=== PATIENT | male | born 1955 | race Caucasian/White ===

== ENCOUNTER 2017-01-15 13:12 | Emergency (ER) | payer MEDICARE, MEDICAID ==
[~2017-01-15] VITALS: Ht 175.3 cm; Wt 82.6 kg
[~2017-01-15 13:12] MED LIST changes: -ATOR40TA78 PO; -GABA600T2 PO; -LABE200T3 PO; -OXYC5TAB3 PO
[2017-01-15 13:53] LABS: HEMOGLOBIN 16.2 g/dL (13.7-18.0)
[2017-01-15] MEDS ORDERED: SODIUM CHLORIDE 0.9% 1,000ML IVBOLUS ONE ×2 (14:00→16:00)
[2017-01-15] MEDS ORDERED: ONDANSETRON 2MG/ML, 2ML IVPush ONE ×2 (14:00→17:30)
[2017-01-15 14:06] LABS: ASPARTATE AMINO TRANSFERASE 9 U/L (15-37); BLOOD UREA NITROGEN 25 mg/dL (7-18)
[2017-01-15] MEDS ORDERED: LABE200T3 PO (15:58)
[2017-01-15] MEDS ORDERED: NITR0.4T SL (15:58)
[2017-01-15] MEDS ORDERED: GABA600T2 PO (15:58)
[2017-01-15] MEDS ORDERED: TAMS0.4C2 PO (15:58)
[2017-01-15] MEDS ORDERED: OXYC5TAB3 PO (15:58)
[2017-01-15] MEDS ORDERED: AMLO10TA2 PO (15:58)
[2017-01-15] MEDS ORDERED: CLOP75TA PO (15:58)
[2017-01-15] MEDS ORDERED: ATOR40TA78 PO (15:58)
[2017-01-15] MEDS ORDERED: FAMOTIDINE 20 MG/2 ML IVP ONE (16:00)
[2017-01-15] MEDS ORDERED: MAALOX/HYOSCYAMINE/LIDOCAINE 45 ML BOTTLE PO ONE (16:00)
[2017-01-15] MEDS ORDERED: FAMOTIDINE 20 MG/2 ML ONE (16:16)
[2017-01-15] MEDS ORDERED: MAALOX/HYOSCYAMINE/LIDOCAINE 45 ML BOTTLE ONE (16:16)
[2017-01-15] MEDS ORDERED: ONDANSETRON 2MG/ML, 2ML ONE ×2 (16:16→18:27)
[2017-01-15] MEDS ORDERED: HYDROmorphone 1 MG/ML, 1ML ONE ×2 (16:16→16:50)
[2017-01-15] MEDS: HYDROmorphone 1 MG/ML, 1ML IVPush PRN ×2 (16:31→16:53)
[2017-01-15] MEDS ORDERED: MORPHINE SULFATE 4 MG/ML, 1ML IVPush PRN (17:30)
[2017-01-15 18:19] LABS: PATH.CAST-FLAG NOT PRESENT; SPERM-FLAG NOT PRESENT; SRC-FLAG NOT PRESENT; XTAL-FLAG NOT PRESENT; YLC-FLAG NOT PRESENT
[2017-01-15] MEDS ORDERED: MORPHINE SULFATE 4 MG/ML, 1ML ONE (18:27)
[2017-01-15 19:18] VITALS: BP 161/99
== END 2017-01-15 19:26 | disposition home or self-care (01) ==
LOC: ED 16:48
DX: R10.12 Left upper quadrant pain (principal); I10 Essential (primary) hypertension; I25.10 Atherosclerotic heart disease of native coronary artery without angina pectoris; G62.9 Polyneuropathy, unspecified; Z95.1 Presence of aortocoronary bypass graft; Z86.718 Personal history of other venous thrombosis and embolism; Z98.890 Other specified postprocedural states
CPT/HCPCS: 36415; 74176; 80053; 81001; 83690; 85025; 96361; 96374; 96375; 96376; 99285; J1170; J2405; J7030; S0028

== ENCOUNTER → 2017-01-15 | Outpatient (CLI) | payer MEDICARE, MEDICAID ==
[~2017-01-15] MED LIST: ACET325T14 PO; ACYC15OI6 TP; AMLO10TA2 PO; ASPI-614; ATOR40TA78 PO; ATOR80TA75 PO; BENA40TA2; CEPH-368 PO; CEPH-376 PO; CLON0.1T PO; CLOP75TA PO; CLOT10TR PO; DOXY100T PO; ENOX100S5 SQ; ENOX120S5 SQ; FENT1PAT76 TD; FENT1PAT76 TP; FENT1PAT77 TD; FENT1PAT78 TD; FINA5TAB4 PO; GABA-827 PO; GABA100C PO; GABA600T2 PO; HYDR-3342; HYDR-3343 PO; ISOS20TA58 PO; ISOS60TA PO; LABE100T3 PO; LABE200T3 PO; LEVO500T8 PO; LISI-167 PO; LISI5TAB PO; LORA2ORA PO; LORA2VIA4 PEG; METO-95; METO-99; METO-99 PO; MORPHINE ER; NITR0.4T SL; ONDA4TAB10 PO; ONDA4TAB7 PO; OXYC20OR8 GT; OXYC5TAB3 PO; TAMS0.4C2 PO; [UNRECOGNIZED DRUG - OTHER]
== END | disposition home or self-care (01) ==
LOC: RAD 10:22
PROVIDERS: ATTEND Family Medicine
DX: R10.9 Unspecified abdominal pain (principal); K76.0 Fatty (change of) liver, not elsewhere classified
CPT/HCPCS: 76700

== ENCOUNTER → 2017-04-26 | Outpatient (CLI) | payer MEDICARE, MEDICAID ==
[~2017-04-26] MED LIST changes: +ATOR40TA78 PO; +GABA600T2 PO; +LABE200T3 PO; +OXYC5TAB3 PO
== END | disposition home or self-care (01) ==
LOC: ROC 07:33
PROVIDERS: ATTEND Radiology Radiation Oncology
DX: C10.8 Malignant neoplasm of overlapping sites of oropharynx (principal)
CPT/HCPCS: G0463

== ENCOUNTER 2017-05-14 20:24 | Inpatient (IN) | payer MEDICARE, MEDICAID ==
[~2017-05-14] VITALS: Ht 175.3 cm; Wt 74.7 kg
[2017-05-14] MEDS ORDERED: SODIUM CHLORIDE 0.9% 1,000 ML IV ONE (20:26)
[2017-05-14] MEDS ORDERED: SODIUM CHLORIDE FLUSH 10ML SYR IVF ONE (20:30)
[2017-05-14] MEDS ORDERED: NITROGLYCERIN SINGLE TAB 0.4 MG SL PRN (20:30)
[2017-05-14] MEDS ORDERED: TICAGRELOR 90 MG TABLET ONE (20:39)
[2017-05-14] MEDS ORDERED: MIDAZOLAM 1 MG/ML, 5ML ONE (20:39)
[2017-05-14] MEDS ORDERED: FENTANYL PF 100 MCG/2ML ONE ×2 (20:39→21:23)
[2017-05-14] MEDS ORDERED: LIDOCAINE 2%, 20ML ONE (20:40)
[2017-05-14] MEDS ORDERED: BIVALIRUDIN 250 MG ONE (20:40)
[2017-05-14] MEDS ORDERED: ENALAPRILAT 1.25 MG/ML, 2ML ONE ×2 (20:43→21:54)
[2017-05-14 20:53] LABS: BLOOD UREA NITROGEN 31 mg/dL (7-18)
[2017-05-14] MEDS ORDERED: SODIUM CHLORIDE FLUSH 10ML SYR IVF PRN (21:00)
[2017-05-14] MEDS ORDERED: DIPHENHYDRAMINE 50 MG/ML, 1ML ONE (21:23)
[2017-05-14] MEDS ORDERED: LABETALOL 5MG/ML, 20ML ONE (21:31)
[2017-05-14] MEDS ORDERED: NITROGLYCERIN/D5W PMX 250 ML ONE (22:27)
[2017-05-14] MEDS ORDERED: NITROGLYCERIN/D5W PMX 250 ML IV PRN (22:30)
[2017-05-14] MEDS ORDERED: PREG75CA PO (22:42)
[2017-05-14 22:47] VITALS: BP 168/125
[2017-05-14] MEDS ORDERED: BIVALIRUDIN 250 MG in DEXTROSE 5% 50 ML IV SCH (23:00)
[2017-05-14] MEDS ORDERED: SODIUM CHLORIDE 0.9% 1,000 ML IV SCH ×2 (23:00→23:11)
[2017-05-14] MEDS ORDERED: BISACODYL 10 MG SUPP PR PRN (23:00)
[2017-05-14] MEDS ORDERED: ZOLPIDEM 5MG TABLET PO PRN (23:00)
[2017-05-14] MEDS ORDERED: ACETAMINOPHEN 325 MG TABLET PO PRN ×2 (23:00→23:30)
[2017-05-14] MEDS ORDERED: BISACODYL 5 MG EC TABLET PO PRN (23:00)
[2017-05-14 23:16] LABS: IS PT STATUS REG ER OR PRE ER? NO
[2017-05-14] MEDS ORDERED: ONDANSETRON 2MG/ML, 2ML IVPush PRN (23:30)
[2017-05-14] MEDS ORDERED: DOCUSATE 100 MG CAPSULE PO PRN (23:30)
[2017-05-14] MEDS ORDERED: ENALAPRILAT 1.25 MG/ML, 2ML IV PRN (23:30)
[2017-05-14] MEDS ORDERED: POLYETHYLENE GLYCOL 17 GM PACKET PO PRN (23:30)
[2017-05-14] MEDS ORDERED: LABETALOL 5MG/ML, 20ML IVPush PRN (23:30)
[2017-05-14] MEDS: HEPARIN 5,000 UNITS/ML, 1ML SQ SCH (23:36)
[2017-05-14] MEDS: OXYcodone IR 5MG TABLET PO PRN (23:36)
[2017-05-14] MEDS: GABAPENTIN 300 MG CAPSULE PO SCH (23:37)
[2017-05-15] MEDS: morphine SULFATE 10 MG/ML, 1ML IVPush PRN ×3 (00:51→08:55)
[2017-05-15] MEDS: ATORVASTATIN 40 MG TABLET PO SCH ×2 (00:51→20:50)
[2017-05-15 04:00] VITALS: BP 162/87
[2017-05-15 05:01] LABS: IS PT STATUS REG ER OR PRE ER? NO
[2017-05-15 05:49] LABS: BLOOD UREA NITROGEN 26 mg/dL (7-18)
[2017-05-15] MEDS: ASPIRIN 81 MG TABLET EC PO SCH (05:55)
[2017-05-15] MEDS: OXYcodone IR 5MG TABLET PO PRN ×2 (05:55→16:30)
[2017-05-15] MEDS: HEPARIN 5,000 UNITS/ML, 1ML SQ SCH ×3 (07:40→23:03)
[2017-05-15] MEDS: TAMSULOSIN 0.4 MG CAP.ER.24H PO SCH (07:58)
[2017-05-15] MEDS: TICAGRELOR 90 MG TABLET PO SCH ×2 (07:58→20:50)
[2017-05-15] MEDS: AMLODIPINE 5 MG TABLET PO SCH (07:59)
[2017-05-15] MEDS: SENNA/DOCUSATE TABLET PO SCH (07:59)
[2017-05-15] MEDS: LABETALOL 200 MG TABLET PO SCH ×2 (07:59→20:51)
[2017-05-15] MEDS: GABAPENTIN 300 MG CAPSULE PO SCH ×2 (08:00→16:00)
[2017-05-15] MEDS ORDERED: FUROSEMIDE 20 MG/2 ML IV ONE (10:30)
[2017-05-15] MEDS: ONDANSETRON 2MG/ML, 2ML IV PRN (17:06)
[2017-05-15] MEDS ORDERED: SODIUM CHLORIDE 0.9%, 500ML IVBOLUS ONE (17:30)
[2017-05-15] MEDS: PREGABALIN 75 MG CAPSULE PO SCH (21:08)
[2017-05-16 02:45] VITALS: BP 138/67
[2017-05-16 04:41] LABS: BLOOD UREA NITROGEN 23 mg/dL (7-18)
[2017-05-16] MEDS: ASPIRIN 81 MG TABLET EC PO SCH (05:25)
[2017-05-16] MEDS: ONDANSETRON 2MG/ML, 2ML IV PRN (06:21)
[2017-05-16] MEDS: HEPARIN 5,000 UNITS/ML, 1ML SQ SCH ×3 (07:00→21:53)
[2017-05-16] MEDS: SENNA/DOCUSATE TABLET PO SCH (09:00)
[2017-05-16] MEDS: PREGABALIN 75 MG CAPSULE PO SCH ×2 (09:00→20:36)
[2017-05-16] MEDS: LABETALOL 200 MG TABLET PO SCH ×2 (09:00→20:36)
[2017-05-16] MEDS: TAMSULOSIN 0.4 MG CAP.ER.24H PO SCH (09:00)
[2017-05-16] MEDS: AMLODIPINE 5 MG TABLET PO SCH (09:00)
[2017-05-16] MEDS: TICAGRELOR 90 MG TABLET PO SCH ×2 (09:17→20:36)
[2017-05-16] MEDS: ACETYLCYSTEINE 600 MG CAPSULE PO SCH ×2 (10:06→20:36)
[2017-05-16] MEDS ORDERED: SODIUM CHLORIDE 0.9% 1,000 ML IV SCH (11:24)
[2017-05-16] MEDS ORDERED: MIDAZOLAM 1 MG/ML, 5ML ONE (14:48)
[2017-05-16] MEDS ORDERED: LIDOCAINE 2%, 20ML ONE (14:49)
[2017-05-16] MEDS ORDERED: FENTANYL PF 100 MCG/2ML ONE (14:49)
[2017-05-16] MEDS ORDERED: DIPHENHYDRAMINE 50 MG/ML, 1ML ONE (14:49)
[2017-05-16] MEDS ORDERED: VERAPAMIL 2.5 MG/ML, 2ML ONE (14:49)
[2017-05-16] MEDS ORDERED: BIVALIRUDIN 250 MG ONE (14:49)
[2017-05-16] MEDS: ATORVASTATIN 40 MG TABLET PO SCH (20:36)
[2017-05-16] MEDS: SODIUM CHLORIDE 0.9% 1,000 ML IV SCH (20:37)
[2017-05-17 03:30] VITALS: BP 122/74
[2017-05-17] MEDS: SODIUM CHLORIDE 0.9% 1,000 ML IV SCH (04:15)
[2017-05-17 04:52] LABS: BLOOD UREA NITROGEN 26 mg/dL (7-18)
[2017-05-17] MEDS: ASPIRIN 81 MG TABLET EC PO SCH (05:30)
[2017-05-17] MEDS: HEPARIN 5,000 UNITS/ML, 1ML SQ SCH ×3 (06:40→23:26)
[2017-05-17] MEDS: AMLODIPINE 5 MG TABLET PO SCH (08:37)
[2017-05-17] MEDS: ACETYLCYSTEINE 600 MG CAPSULE PO SCH ×2 (08:37→20:27)
[2017-05-17] MEDS: TICAGRELOR 90 MG TABLET PO SCH ×2 (08:37→20:27)
[2017-05-17] MEDS: PREGABALIN 75 MG CAPSULE PO SCH ×2 (08:37→20:27)
[2017-05-17] MEDS: SENNA/DOCUSATE TABLET PO SCH (08:37)
[2017-05-17] MEDS: LABETALOL 200 MG TABLET PO SCH ×2 (08:37→20:27)
[2017-05-17 12:35] VITALS: BP 98/66
[2017-05-17 20:04] VITALS: BP 123/82
[2017-05-17] MEDS: ATORVASTATIN 40 MG TABLET PO SCH (20:27)
[2017-05-17] MEDS: TAMSULOSIN 0.4 MG CAP.ER.24H PO SCH (20:27)
[2017-05-18 03:00] VITALS: BP 120/79
[2017-05-18 05:18] LABS: BLOOD UREA NITROGEN 30 mg/dL (7-18)
[2017-05-18] MEDS: ASPIRIN 81 MG TABLET EC PO SCH (06:10)
[2017-05-18 07:25] VITALS: BP 119/79
[2017-05-18] MEDS: AMLODIPINE 5 MG TABLET PO SCH (08:40)
[2017-05-18] MEDS: PREGABALIN 75 MG CAPSULE PO SCH (08:40)
[2017-05-18] MEDS: TAMSULOSIN 0.4 MG CAP.ER.24H PO SCH (08:40)
[2017-05-18] MEDS: TICAGRELOR 90 MG TABLET PO SCH (08:40)
[2017-05-18] MEDS: LABETALOL 200 MG TABLET PO SCH (08:41)
[2017-05-18] MEDS: SENNA/DOCUSATE TABLET PO SCH (08:42)
[2017-05-18] MEDS: HEPARIN 5,000 UNITS/ML, 1ML SQ SCH (08:42)
[2017-05-18] MEDS ORDERED: DOCU-30 PO (08:59)
[2017-05-18] MEDS ORDERED: ASPI-621 PO (08:59)
[2017-05-18] MEDS ORDERED: TICA90TA PO (08:59)
== END 2017-05-18 11:10 | disposition home or self-care (01) | DRG 246 ==
LOC: ED 20:48 → EDIP 21:20 → CCU 22:22 → 5SO 05-17 12:10 → DCLOUNGE 05-18 10:51
PROVIDERS: ADMIT Internal Medicine Interventional Cardiology; ATTEND Family Medicine
PROC: 4A023N7 Measurement of Cardiac Sampling and Pressure, Left Heart, Percutaneous Approach (ICD-10-PCS; 2017-05-14)
PROC: B2111ZZ Fluoroscopy of Multiple Coronary Arteries using Low Osmolar Contrast (ICD-10-PCS; 2017-05-14)
PROC: 027135Z Dilation of Coronary Artery, Two Arteries with Two Drug-eluting Intraluminal Devices, Percutaneous Approach (ICD-10-PCS; principal; 2017-05-16)
DX: I21.09 ST elevation (STEMI) myocardial infarction involving other coronary artery of anterior wall (principal); N17.0 Acute kidney failure with tubular necrosis; I25.10 Atherosclerotic heart disease of native coronary artery without angina pectoris; I13.10 Hypertensive heart and chronic kidney disease without heart failure, with stage 1 through stage 4 chronic kidney disease, or unspecified chronic kidney disease; E78.5 Hyperlipidemia, unspecified; I34.0 Nonrheumatic mitral (valve) insufficiency; N40.0 Benign prostatic hyperplasia without lower urinary tract symptoms; N18.3 Chronic kidney disease, stage 3 (moderate); I95.9 Hypotension, unspecified; R13.10 Dysphagia, unspecified; L59.8 Other specified disorders of the skin and subcutaneous tissue related to radiation; Z88.8 Allergy status to other drugs, medicaments and biological substances; Z88.1 Allergy status to other antibiotic agents; Z91.030 Bee allergy status; Z85.810 Personal history of malignant neoplasm of tongue; Z86.718 Personal history of other venous thrombosis and embolism; Z87.11 Personal history of peptic ulcer disease; Z87.891 Personal history of nicotine dependence; I25.2 Old myocardial infarction; Z92.21 Personal history of antineoplastic chemotherapy; Z92.3 Personal history of irradiation; Z93.1 Gastrostomy status
CPT/HCPCS: 36415; 71010; 80047; 80048; 82040; 83880; 84484; 85014; 85018; 85025; 85610; 85730; 87081; 93005; 93306; 93454; 99156; 99157; 99285; C1760; C1894; C9600; J0583; J1644; J2250; J2405; J3010; J3490; C1725; C1769; C1874; C1887; J1200; J1940; J2270; J7030; J7040; Q9967

== ENCOUNTER → 2017-06-20 | Outpatient (CLI) | payer MEDICARE, MEDICAID ==
[~2017-06-20] MED LIST changes: +ASPI-621 PO; +ATOR-2 PO; -ATOR80TA75 PO; +DOCU-131 PO; +PREG75CA PO; +TICA90TA PO
== END | disposition home or self-care (01) ==
LOC: CFH 08:59
PROVIDERS: ATTEND Internal Medicine Cardiovascular Disease
DX: I08.1 Rheumatic disorders of both mitral and tricuspid valves (principal); I25.10 Atherosclerotic heart disease of native coronary artery without angina pectoris
CPT/HCPCS: 93306

== ENCOUNTER → 2017-10-05 | Outpatient (CLI) | payer MEDICARE, MEDICAID | END | disposition home or self-care (01) | LOC: ROC 07:22 | PROVIDERS: ATTEND Radiology Radiation Oncology | DX: C01 Malignant neoplasm of base of tongue (principal); Z88.0 Allergy status to penicillin | CPT/HCPCS: G0463 ==

== ENCOUNTER 2018-01-15 08:32 | Inpatient (IN) | payer MEDICARE, MEDICAID ==
[~2018-01-15] VITALS: Ht 175.3 cm; Wt 86.2 kg
[2018-01-15] MEDS ORDERED: LACTATED RINGERS 1,000 ML IV SCH (08:58)
[2018-01-15] MEDS ORDERED: LISI-167 PO (09:07)
[2018-01-15] MEDS ORDERED: AMLO5TAB2 PO (09:07)
[2018-01-15] MEDS ORDERED: OXYC10TA6 PO (09:07)
[2018-01-15] MEDS ORDERED: CLOP75TA PO (09:07)
[2018-01-15] MEDS ORDERED: PREG75CA PO (09:07)
[2018-01-15] MEDS ORDERED: FINA5TAB4 PO (09:07)
[2018-01-15 09:32] VITALS: BP 131/86
[2018-01-15 09:43] LABS: ALANINE AMINOTRANSFERASE 16 U/L (12-78); ALBUMIN 3.7 g/dL (3.4-5.0); ANION GAP 9 mmol/L (5-15); CALCIUM 9.1 mg/dL (8.5-10.1); CHLORIDE 107 mmol/L (98-107); CREATININE 1.79 mg/dL (0.7-1.3)
[2018-01-15 09:46] LABS: ALKALINE PHOSPHATASE 90 U/L (45-117); BILIRUBIN,TOTAL 0.6 mg/dL (0.2-1.0); TOTAL PROTEIN 7.3 g/dL (6.4-8.2)
[2018-01-15 11:58] LABS: BASOPHILS # (AUTO) 0.05 x10^3/uL (0-0.1); BASOPHILS % (AUTO) 1 % (0-1); EOSINOPHILS # (AUTO) 0.24 x10^3/uL (0-0.4); EOSINOPHILS % (AUTO) 3 % (1-7); LYMPHOCYTES # (AUTO) 1.42 x10^3/uL (1-3.4); LYMPHOCYTES % (AUTO) 20 % (22-44); MD NO; MEAN CORPUSCULAR HEMOGLOBIN 29.4 pg (27.5-34.5); MEAN CORPUSCULAR HGB CONC 33.5 g/dL (33.2-36.2); MEAN CORPUSCULAR VOLUME 87.8 fL (81-97); MEAN PLATELET VOLUME 8.1 fL (7.4-10.4); MONOCYTES # (AUTO) 0.74 x10^3/uL (0.2-0.8); MONOCYTES % (AUTO) 10 % (2-9); NEUTROPHILS # (AUTO) 4.69 x10^3/uL (1.8-6.8); NEUTROPHILS % (AUTO) 66 % (42-75); PLATELET COUNT 276 x10^3/uL (130-400); RED BLOOD COUNT 4.99 x10^6/uL (4.38-5.82); RED CELL DISTRIBUTION WIDTH 14.4 % (9.4-14.8)
[2018-01-15 12:11] LABS: ALANINE AMINOTRANSFERASE 19 U/L (12-78); ALBUMIN 3.4 g/dL (3.4-5.0); ANION GAP 9 mmol/L (5-15); CALCIUM 8.8 mg/dL (8.5-10.1); CHLORIDE 107 mmol/L (98-107); CREATININE 1.63 mg/dL (0.7-1.3)
[2018-01-15 12:14] LABS: INTERNATIONAL NORMALIZED RATIO 0.98 (0.93-1.1); PROTHROMBIN TIME 10.2 Seconds (9.6-11.5)
[2018-01-15 12:15] LABS: ALKALINE PHOSPHATASE 83 U/L (45-117); BILIRUBIN,TOTAL 0.6 mg/dL (0.2-1.0); CREATINE KINASE, TOTAL 124 U/L (39-308); TOTAL PROTEIN 6.9 g/dL (6.4-8.2); TROPONIN I < 0.015 ng/mL (0.000-0.045)
[2018-01-15] MEDS ORDERED: ALTEPLASE IV ONE ×3 (13:00→13:30)
[2018-01-15] MEDS ORDERED: ALTEPLASE 8 MG in SYRINGE 1 EA IV ONE ×2 (13:30→13:42)
[2018-01-15] MEDS ORDERED: ONDANSETRON 2MG/ML, 2ML IVPush PRN (14:30)
[2018-01-15] MEDS ORDERED: ACETAMINOPHEN 650 MG/20.3 ML UDC PO PRN (14:30)
[2018-01-15] MEDS ORDERED: POLYETHYLENE GLYCOL 17 GM PACKET PO PRN (14:30)
[2018-01-15 14:36] VITALS: BP 134/74
[2018-01-15] MEDS ORDERED: PROPOFOL 10 MG/ML, 20ML ONE (15:50)
[2018-01-15] MEDS ORDERED: GABAPENTIN 300 MG CAPSULE PO SCH (16:00)
[2018-01-15] MEDS: OXYcodone IR 5MG TABLET PO PRN ×2 (16:21→18:02)
[2018-01-15] MEDS: PREGABALIN 75 MG CAPSULE PO SCH (19:52)
[2018-01-15] MEDS: ATORVASTATIN 40 MG TABLET PO SCH (19:52)
[2018-01-15] MEDS ORDERED: DOCUSATE 100 MG CAPSULE PO PRN (21:00)
[2018-01-16 04:26] LABS: BASOPHILS # (AUTO) 0.03 x10^3/uL (0-0.1); BASOPHILS % (AUTO) 1 % (0-1); EOSINOPHILS # (AUTO) 0.27 x10^3/uL (0-0.4); EOSINOPHILS % (AUTO) 4 % (1-7); LYMPHOCYTES # (AUTO) 1.31 x10^3/uL (1-3.4); LYMPHOCYTES % (AUTO) 18 % (22-44); MD NO; MEAN CORPUSCULAR HEMOGLOBIN 29.3 pg (27.5-34.5); MEAN CORPUSCULAR VOLUME 88.6 fL (81-97); MONOCYTES # (AUTO) 0.71 x10^3/uL (0.2-0.8); MONOCYTES % (AUTO) 10 % (2-9); NEUTROPHILS # (AUTO) 4.86 x10^3/uL (1.8-6.8); NEUTROPHILS % (AUTO) 68 % (42-75); PLATELET COUNT 273 x10^3/uL (130-400); RED BLOOD COUNT 5.34 x10^6/uL (4.38-5.82); RED CELL DISTRIBUTION WIDTH 14.1 % (9.4-14.8)
[2018-01-16 04:33] LABS: INTERNATIONAL NORMALIZED RATIO 1.05 (0.93-1.1); PROTHROMBIN TIME 10.9 Seconds (9.6-11.5)
[2018-01-16 04:38] LABS: ANION GAP 6 mmol/L (5-15); CALCIUM 9.4 mg/dL (8.5-10.1); CHLORIDE 109 mmol/L (98-107)
[2018-01-16 04:39] LABS: CREATININE 1.63 mg/dL (0.7-1.3)
[2018-01-16 05:07] VITALS: BP 106/72
[2018-01-16] MEDS: AMLODIPINE 5 MG TABLET PO SCH (09:31)
[2018-01-16] MEDS: TAMSULOSIN 0.4 MG CAP.ER.24H PO SCH (09:31)
[2018-01-16] MEDS: LISINOPRIL 10 MG TABLET PO SCH (09:31)
[2018-01-16] MEDS: FINASTERIDE 5 MG TABLET PO SCH (09:31)
[2018-01-16] MEDS: PREGABALIN 75 MG CAPSULE PO SCH ×2 (09:38→20:45)
[2018-01-16] MEDS: OXYcodone IR 5MG TABLET PO PRN ×2 (09:38→20:45)
[2018-01-16 15:55] VITALS: BP 96/64
[2018-01-16 20:00] VITALS: BP 117/76
[2018-01-16] MEDS: ATORVASTATIN 40 MG TABLET PO SCH (20:45)
[2018-01-17 02:00] VITALS: BP 126/82
[2018-01-17 05:36] LABS: BASOPHILS # (AUTO) 0.05 x10^3/uL (0-0.1); BASOPHILS % (AUTO) 1 % (0-1); EOSINOPHILS # (AUTO) 0.24 x10^3/uL (0-0.4); EOSINOPHILS % (AUTO) 3 % (1-7); LYMPHOCYTES # (AUTO) 1.42 x10^3/uL (1-3.4); LYMPHOCYTES % (AUTO) 16 % (22-44); MD NO; MEAN CORPUSCULAR HEMOGLOBIN 29.9 pg (27.5-34.5); MEAN CORPUSCULAR HGB CONC 34.2 g/dL (33.2-36.2); MEAN CORPUSCULAR VOLUME 87.3 fL (81-97); MEAN PLATELET VOLUME 8.3 fL (7.4-10.4); MONOCYTES # (AUTO) 0.86 x10^3/uL (0.2-0.8); MONOCYTES % (AUTO) 10 % (2-9); NEUTROPHILS # (AUTO) 6.36 x10^3/uL (1.8-6.8); NEUTROPHILS % (AUTO) 71 % (42-75); PLATELET COUNT 274 x10^3/uL (130-400); RED BLOOD COUNT 5.24 x10^6/uL (4.38-5.82); RED CELL DISTRIBUTION WIDTH 13.6 % (9.4-14.8)
[2018-01-17 05:54] LABS: ALBUMIN 3.7 g/dL (3.4-5.0); ANION GAP 10 mmol/L (5-15); CALCIUM 9.2 mg/dL (8.5-10.1); CHLORIDE 105 mmol/L (98-107)
[2018-01-17 05:58] LABS: ALANINE AMINOTRANSFERASE 18 U/L (12-78); ALKALINE PHOSPHATASE 96 U/L (45-117); BILIRUBIN,TOTAL 0.9 mg/dL (0.2-1.0); CREATININE 1.96 mg/dL (0.7-1.3); TOTAL PROTEIN 7.3 g/dL (6.4-8.2)
[2018-01-17 08:02] VITALS: BP 115/78
[2018-01-17] MEDS ORDERED: CLOPIDOGREL 75 MG TABLET PO SCH (09:00)
[2018-01-17] MEDS: AMLODIPINE 5 MG TABLET PO SCH (09:29)
[2018-01-17 09:30] VITALS: BP 107/69
[2018-01-17] MEDS: FINASTERIDE 5 MG TABLET PO SCH (09:30)
[2018-01-17] MEDS: LISINOPRIL 10 MG TABLET PO SCH (09:30)
[2018-01-17] MEDS: TAMSULOSIN 0.4 MG CAP.ER.24H PO SCH (09:30)
[2018-01-17] MEDS: PREGABALIN 75 MG CAPSULE PO SCH (09:30)
[2018-01-17 14:16] VITALS: BP 109/73
== END 2018-01-17 15:47 | disposition home or self-care (01) | DRG 391 ==
LOC: OUT 08:32 → CCU 12:52 → OUT 13:07 → CCU 01-16 11:14 → 4WST 01-16 15:41 → DCLOUNGE 01-17 15:38
PROVIDERS: ADMIT Internal Medicine; ATTEND Internal Medicine Geriatric Medicine
PROC: 3E03317 Introduction of Other Thrombolytic into Peripheral Vein, Percutaneous Approach (ICD-10-PCS; 2018-01-15)
PROC: 0D758ZZ Dilation of Esophagus, Via Natural or Artificial Opening Endoscopic (ICD-10-PCS; principal; 2018-01-15 11:15)
DX: K22.2 Esophageal obstruction (principal); I63.9 Cerebral infarction, unspecified; R47.01 Aphasia; I25.82 Chronic total occlusion of coronary artery; C76.0 Malignant neoplasm of head, face and neck; N19 Unspecified kidney failure; E78.5 Hyperlipidemia, unspecified; F43.10 Post-traumatic stress disorder, unspecified; I10 Essential (primary) hypertension; I25.10 Atherosclerotic heart disease of native coronary artery without angina pectoris; Z92.21 Personal history of antineoplastic chemotherapy; Z92.3 Personal history of irradiation; Z95.1 Presence of aortocoronary bypass graft; Z95.5 Presence of coronary angioplasty implant and graft; Z79.02 Long term (current) use of antithrombotics/antiplatelets; N40.0 Benign prostatic hyperplasia without lower urinary tract symptoms; I65.23 Occlusion and stenosis of bilateral carotid arteries
CPT/HCPCS: 36415; 70450; 80047; 80048; 80053; 80061; 82550; 82553; 82962; 83735; 84100; 84484; 85025; 85610; 85730; 87081; 88305; 93005; 93306; 93880; J2704; J2997; 92523-GN

== ENCOUNTER → 2018-08-16 | Outpatient (CLI) | payer MEDICARE, MEDICAID ==
[~2018-08-16] MED LIST changes: -AMLO10TA2 PO; +AMLO10TA6 PO; +AMLO5TAB7 PO; -BENA40TA2; +BENA40TA3; -LABE100T3 PO; +LABE100T6 PO; -LABE200T3 PO; +LABE200T6 PO; -LORA2VIA4 PEG; +LORA2VIA6 PEG; +OXYC10TA6 PO; +REGADENOSON 0.4 MG/5 ML SYRINGE ONE
== END | disposition home or self-care (01) ==
LOC: CVU 08:23
PROVIDERS: ATTEND Internal Medicine Cardiovascular Disease
DX: I65.23 Occlusion and stenosis of bilateral carotid arteries (principal); I10 Essential (primary) hypertension; E78.5 Hyperlipidemia, unspecified; I25.2 Old myocardial infarction
CPT/HCPCS: 78452; 93017; 93880; A9502; J2785

== ENCOUNTER 2019-02-23 00:02 | Inpatient (IN) | payer MEDICARE, MEDICAID ==
[2019-02-23] VITALS (11 sets, daily range): BP systolic 72–115; BP diastolic 35–68
[~2019-02-23] VITALS: Ht 175.3 cm; Wt 82.4 kg
[~2019-02-23 00:02] MED LIST changes: +AMLO-150 PO; -AMLO10TA6 PO; +AMLO10TA8 PO; -AMLO5TAB7 PO; -ASPI-621 PO; +ASPI81TA45 PO; -CLON0.1T PO; +CLON0.1T22 PO; -GABA600T2 PO; +GABA600T7 PO; -REGADENOSON 0.4 MG/5 ML SYRINGE ONE
--- NOTE | 2019-02-23 00:42 | NUR ---
FIRST CONTACT WITH PT. PT STATES HE WOKE UP AROUND 11 PM WITH HIGH BLOOD PRESSURE. 169/114. SLIGHT CHEST PAIN THAT RADIATES TO BACK. BP TAKEN ON BOTH ARMS WITH NO DIFFERENCE. SPINAL STIMULATOR NOTED. PT C/O CP/BACK PAIN WELL. PT'S AOX4. RESPS EVEN AND UNLABORED. ALL MONITORS IN PLACE. CALL LIGHT WITHIN REACH. NSR ON TORCH CUTTER WITHOUT ECTOPY RATE 70'S AT THIS TIME. AWAITING EDMD ORDERES.
[2019-02-23] MEDS ORDERED: NITROGLYCERIN OINT 2%, 1GM TP ONE ×2 (01:19→01:30)
[2019-02-23] MEDS ORDERED: SODIUM CHLORIDE FLUSH 10ML SYR IVF ONE (01:30)
[2019-02-23 01:36] LABS: BASOPHILS # (AUTO) 0.04 x10^3/uL (0-0.1); BASOPHILS % (AUTO) 1 % (0-1); EOSINOPHILS # (AUTO) 0.29 x10^3/uL (0-0.4); EOSINOPHILS % (AUTO) 4 % (1-7); LYMPHOCYTES # (AUTO) 1.47 x10^3/uL (1-3.4); LYMPHOCYTES % (AUTO) 18 % (22-44); MD NO; MEAN CORPUSCULAR HEMOGLOBIN 29.7 pg (27.5-34.5); MEAN CORPUSCULAR HGB CONC 33.8 g/dL (33.2-36.2); MEAN CORPUSCULAR VOLUME 87.9 fL (81-97); MEAN PLATELET VOLUME 8.3 fL (7.4-10.4); MONOCYTES # (AUTO) 0.81 x10^3/uL (0.2-0.8); MONOCYTES % (AUTO) 10 % (2-9); NEUTROPHILS # (AUTO) 5.54 x10^3/uL (1.8-6.8); NEUTROPHILS % (AUTO) 68 % (42-75); PLATELET COUNT 196 x10^3/uL (130-400); RED BLOOD COUNT 5.68 x10^6/uL (4.38-5.82); RED CELL DISTRIBUTION WIDTH 14.1 % (9.4-14.8)
[2019-02-23 01:43] LABS: INTERNATIONAL NORMALIZED RATIO 0.96 (0.93-1.1); PROTHROMBIN TIME 10.1 Seconds (9.6-11.5)
[2019-02-23 01:45] LABS: ALANINE AMINOTRANSFERASE 19 U/L (12-78); ANION GAP 8 mmol/L (5-15); CALCIUM 9.5 mg/dL (8.5-10.1); CHLORIDE 111 mmol/L (98-107); CREATININE 1.75 mg/dL (0.7-1.3)
--- NOTE | 2019-02-23 01:46 | NUR ---
PT MEDICATED PER EMAR. PT TOLERATED WELL. PT'S AOX4. RESPS EVEN AND UNLABORED.
[2019-02-23 01:50] LABS: ALKALINE PHOSPHATASE 90 U/L (45-117); BILIRUBIN,TOTAL 0.3 mg/dL (0.2-1.0); TOTAL PROTEIN 7.5 g/dL (6.4-8.2); TROPONIN I < 0.015 ng/mL (0.000-0.045)
[2019-02-23] MEDS ORDERED: ATOR-2 PO (02:00)
[2019-02-23] MEDS ORDERED: PRAZ1CAP2 PO (02:03)
--- NOTE | 2019-02-23 02:47 | NUR ---
PT RESTING IN [facility]. ALL MONITORS IN PLACE. CALL LIGHT WITHIN REACH. EDMD AT BEDSIDE TO EXPLAIN ALL RESULTS AT THIS TIME.
[2019-02-23] MEDS ORDERED: ACETAMINOPHEN 500 MG TABLET PO ONE (03:00)
[2019-02-23] MEDS ORDERED: MORPHINE SULFATE 4 MG/ML, 1ML IVPush ONE (03:00)
[2019-02-23] MEDS ORDERED: MORPHINE SULFATE 4 MG/ML, 1ML ONE (03:01)
[2019-02-23] MEDS ORDERED: ACETAMINOPHEN 500 MG TABLET ONE (03:01)
--- NOTE | 2019-02-23 03:08 | NUR ---
PT MEDICATED PER EMAR FOR PAIN. PT TOLERATED WELL. HOSPITALIST AT BEDSIDE NOW.
--- NOTE | 2019-02-23 04:09 | NUR ---
PT'S PAIN LEVEL IS 3/10 AT THIS TIME.
--- NOTE | 2019-02-23 05:36 | NUR ---
PT RESTING IN [facility]. RESPS EVEN AND UNLABORED. ALL MONITORS IN PLACE. CALL LIGHT WITHIN REACH.
[2019-02-23] MEDS ORDERED: ASPIRIN 81 MG TABLET EC ONE (05:56)
[2019-02-23] MEDS: ASPIRIN 81 MG TABLET EC PO SCH (05:59)
--- NOTE | 2019-02-23 06:02 | NUR ---
PT MEDICATED PER EMAR. PT'S AOX4. RESPS EVEN AND UNLABORED. ALL MONITORS IN PLACE. CALL LIGHT WITHIN REACH.
--- NOTE | 2019-02-23 06:54 | NUR ---
REPORT GIVEN TO SYED OVALLE.
[2019-02-23] MEDS ORDERED: MAALOX/HYOSCYAMINE/LIDOCAINE 45 ML BTL PO ONE (07:00)
--- NOTE | 2019-02-23 07:00 | NUR ---
REPORT GIVEN TO LEONELA OVALLE. ALL QUESTIONS ANSWERED.
[2019-02-23] MEDS ORDERED: LABETALOL 200 MG TABLET PO SCH (09:00)
[2019-02-23] MEDS ORDERED: LISINOPRIL 10 MG TABLET PO SCH (09:00)
[2019-02-23] MEDS ORDERED: AMLODIPINE 10 MG TAB PO SCH (09:00)
[2019-02-23 09:48] LABS: TROPONIN I < 0.015 ng/mL (0.000-0.045)
[2019-02-23] MEDS: FINASTERIDE 5 MG TABLET PO SCH (09:48)
[2019-02-23] MEDS: CLOPIDOGREL 75 MG TABLET PO SCH (09:50)
[2019-02-23] MEDS: PREGABALIN 75 MG CAPSULE PO SCH ×2 (09:50→21:48)
[2019-02-23] MEDS: HEPARIN 5,000 UNITS/ML, 1ML SQ SCH ×2 (09:51→17:45)
[2019-02-23] MEDS: TAMSULOSIN 0.4 MG CAP.ER.24H PO SCH (09:51)
[2019-02-23] MEDS: PRAZOSIN 1 MG CAPSULE PO SCH ×2 (09:52→09:54)
[2019-02-23] MEDS ORDERED: SODIUM CHLORIDE 0.9% 1,000 ML IV SCH ×2 (11:00→11:30)
[2019-02-23] MEDS: SODIUM CHLORIDE 0.9% 1,000 ML IV SCH ×2 (11:15→21:49)
[2019-02-23] MEDS ORDERED: BROM5DRO3 RIGHTEYE (16:00)
[2019-02-23] MEDS ORDERED: SODIUM CHLORIDE 0.9%, 500ML IVBOLUS ONE ×2 (16:00→18:00)
[2019-02-23] MEDS ORDERED: DIFL5DRO RIGHTEYE (16:00)
[2019-02-23] MEDS: ATORVASTATIN 80 MG TABLET PO SCH (21:48)
[2019-02-24 01:53] VITALS: BP 126/68
[2019-02-24] MEDS: HEPARIN 5,000 UNITS/ML, 1ML SQ SCH ×3 (01:53→16:59)
[2019-02-24 05:05] LABS: BASOPHILS # (AUTO) 0.06 x10^3/uL (0-0.1); BASOPHILS % (AUTO) 1 % (0-1); EOSINOPHILS # (AUTO) 0.38 x10^3/uL (0-0.4); EOSINOPHILS % (AUTO) 5 % (1-7); LYMPHOCYTES # (AUTO) 1.54 x10^3/uL (1-3.4); LYMPHOCYTES % (AUTO) 22 % (22-44); MD NO; MEAN CORPUSCULAR HEMOGLOBIN 28.7 pg (27.5-34.5); MEAN CORPUSCULAR HGB CONC 33.1 g/dL (33.2-36.2); MEAN CORPUSCULAR VOLUME 86.7 fL (81-97); MEAN PLATELET VOLUME 8.6 fL (7.4-10.4); MONOCYTES % (AUTO) 10 % (2-9); NEUTROPHILS # (AUTO) 4.41 x10^3/uL (1.8-6.8); NEUTROPHILS % (AUTO) 62 % (42-75); PLATELET COUNT 196 x10^3/uL (130-400); RED BLOOD COUNT 4.98 x10^6/uL (4.38-5.82); RED CELL DISTRIBUTION WIDTH 14.1 % (9.4-14.8)
[2019-02-24 05:14] LABS: ANION GAP 5 mmol/L (5-15); CALCIUM 8.9 mg/dL (8.5-10.1); CHLORIDE 109 mmol/L (98-107)
[2019-02-24 05:16] LABS: CREATININE 1.53 mg/dL (0.7-1.3)
[2019-02-24] MEDS: ASPIRIN 81 MG TABLET EC PO SCH (06:10)
[2019-02-24 06:30] VITALS: BP 124/82
[2019-02-24] MEDS: PREGABALIN 75 MG CAPSULE PO SCH ×2 (10:13→20:29)
[2019-02-24] MEDS: FINASTERIDE 5 MG TABLET PO SCH (10:13)
[2019-02-24] MEDS: TAMSULOSIN 0.4 MG CAP.ER.24H PO SCH (10:13)
[2019-02-24] MEDS: CLOPIDOGREL 75 MG TABLET PO SCH (10:13)
[2019-02-24 13:26] VITALS: BP 111/71
[2019-02-24] MEDS ORDERED: MIDAZOLAM 1 MG/ML, 5ML ONE (14:00)
[2019-02-24] MEDS ORDERED: FENTANYL PF 100 MCG/2ML ONE (14:00)
[2019-02-24] MEDS ORDERED: TICAGRELOR 90 MG TABLET ONE (14:01)
[2019-02-24] MEDS ORDERED: HEPARIN 1,000 UNITS/ML, 10ML ONE (14:01)
[2019-02-24] MEDS ORDERED: VERAPAMIL 2.5 MG/ML, 2ML ONE (14:01)
[2019-02-24] MEDS ORDERED: BIVALIRUDIN 250 MG ONE (14:01)
[2019-02-24] MEDS: SODIUM CHLORIDE 0.9% 1,000 ML IV SCH ×3 (16:21→23:14)
[2019-02-24] MEDS ORDERED: morphine SULFATE 10 MG/ML, 1ML IVPush PRN (16:30)
[2019-02-24] MEDS: LABETALOL 100 MG TABLET PO SCH (18:09)
[2019-02-24 18:29] VITALS: BP 144/82
[2019-02-24] MEDS: ATORVASTATIN 80 MG TABLET PO SCH (20:29)
[2019-02-25 01:35] VITALS: BP 140/88
[2019-02-25] MEDS: ASPIRIN 81 MG TABLET EC PO SCH (05:29)
[2019-02-25] MEDS: SODIUM CHLORIDE 0.9% 1,000 ML IV SCH ×3 (05:30→15:14)
[2019-02-25 05:32] LABS: ANION GAP 8 mmol/L (5-15); CALCIUM 8.8 mg/dL (8.5-10.1); CHLORIDE 112 mmol/L (98-107)
[2019-02-25 05:34] LABS: CREATININE 1.46 mg/dL (0.7-1.3)
[2019-02-25 06:54] VITALS: BP 133/77
[2019-02-25] MEDS ORDERED: ISOSORBIDE MONONITRATE ER 30 MG TABLET PO SCH (09:00)
[2019-02-25] MEDS: CLOPIDOGREL 75 MG TABLET PO SCH (09:20)
[2019-02-25] MEDS: LABETALOL 100 MG TABLET PO SCH (09:20)
[2019-02-25] MEDS: PREGABALIN 75 MG CAPSULE PO SCH (09:20)
[2019-02-25] MEDS: TAMSULOSIN 0.4 MG CAP.ER.24H PO SCH (09:20)
[2019-02-25] MEDS: FINASTERIDE 5 MG TABLET PO SCH (09:21)
[2019-02-25] MEDS: HEPARIN 5,000 UNITS/ML, 1ML SQ SCH (09:29)
[2019-02-25 10:51] VITALS: BP 128/75
[2019-02-25 12:14] VITALS: BP 129/78
[2019-02-25] MEDS ORDERED: LABE200T6 PO (13:26)
[2019-02-25] MEDS ORDERED: ISOS30TA8 PO (13:26)
== END 2019-02-25 16:39 | disposition home or self-care (01) | DRG 246 ==
LOC: ED 00:44 → EDIP 02:43 → 5SO 07:17 → OBSVTOIN 02-24 12:27
PROVIDERS: ADMIT Internal Medicine; ATTEND Internal Medicine
PROC: 027034Z Dilation of Coronary Artery, One Artery with Drug-eluting Intraluminal Device, Percutaneous Approach (ICD-10-PCS; principal; 2019-02-24)
PROC: 4A023N7 Measurement of Cardiac Sampling and Pressure, Left Heart, Percutaneous Approach (ICD-10-PCS; 2019-02-24)
PROC: B2121ZZ Fluoroscopy of Single Coronary Artery Bypass Graft using Low Osmolar Contrast (ICD-10-PCS; 2019-02-24)
PROC: B2181ZZ Fluoroscopy of Left Internal Mammary Bypass Graft using Low Osmolar Contrast (ICD-10-PCS; 2019-02-24)
PROC: B2111ZZ Fluoroscopy of Multiple Coronary Arteries using Low Osmolar Contrast (ICD-10-PCS; 2019-02-24)
PROC: B2151ZZ Fluoroscopy of Left Heart using Low Osmolar Contrast (ICD-10-PCS; 2019-02-24)
DX: I25.110 Atherosclerotic heart disease of native coronary artery with unstable angina pectoris (principal); N17.0 Acute kidney failure with tubular necrosis; E78.5 Hyperlipidemia, unspecified; G47.00 Insomnia, unspecified; I10 Essential (primary) hypertension; K22.2 Esophageal obstruction; N40.0 Benign prostatic hyperplasia without lower urinary tract symptoms; Z79.02 Long term (current) use of antithrombotics/antiplatelets; Z79.82 Long term (current) use of aspirin; Z85.01 Personal history of malignant neoplasm of esophagus; Z85.810 Personal history of malignant neoplasm of tongue; Z85.818 Personal history of malignant neoplasm of other sites of lip, oral cavity, and pharynx; Z86.73 Personal history of transient ischemic attack (TIA), and cerebral infarction without residual deficits; Z92.21 Personal history of antineoplastic chemotherapy; Z87.891 Personal history of nicotine dependence; Z92.3 Personal history of irradiation; Z93.1 Gastrostomy status; Z95.1 Presence of aortocoronary bypass graft; Z95.5 Presence of coronary angioplasty implant and graft; Z88.8 Allergy status to other drugs, medicaments and biological substances
CPT/HCPCS: 36415; 71045; 80048; 80053; 83690; 84484; 85025; 85610; 85730; 93005; 93306; 93458; 96374; 99156; 99157; C1769; C1894; C9600; G0378; J0583; J1644; J2250; J3010; C1725; C1874; C1887; J2270; J7030; J7040; Q9967

== ENCOUNTER 2019-02-27 01:58 | Observation (INO) | payer MEDICAID, MEDICARE ==
[~2019-02-27] VITALS: Ht 175.3 cm; Wt 85.3 kg
[~2019-02-27 01:58] MED LIST changes: +BROM5DRO3 RIGHTEYE; +DIFL5DRO RIGHTEYE; +ISOS30TA8 PO; +PRAZ1CAP2 PO
[2019-02-27 02:27] LABS: BASOPHILS # (AUTO) 0.02 x10^3/uL (0-0.1); BASOPHILS % (AUTO) 0 % (0-1); EOSINOPHILS # (AUTO) 0.45 x10^3/uL (0-0.4); EOSINOPHILS % (AUTO) 6 % (1-7); LYMPHOCYTES # (AUTO) 1.41 x10^3/uL (1-3.4); LYMPHOCYTES % (AUTO) 18 % (22-44); MD NO; MEAN CORPUSCULAR HEMOGLOBIN 28.9 pg (27.5-34.5); MEAN CORPUSCULAR HGB CONC 33.3 g/dL (33.2-36.2); MEAN CORPUSCULAR VOLUME 86.8 fL (81-97); MEAN PLATELET VOLUME 7.9 fL (7.4-10.4); MONOCYTES # (AUTO) 0.69 x10^3/uL (0.2-0.8); MONOCYTES % (AUTO) 9 % (2-9); NEUTROPHILS % (AUTO) 68 % (42-75); PLATELET COUNT 224 x10^3/uL (130-400); RED BLOOD COUNT 5.26 x10^6/uL (4.38-5.82); RED CELL DISTRIBUTION WIDTH 14.3 % (9.4-14.8)
[2019-02-27] MEDS ORDERED: MORPHINE SULFATE 4 MG/ML, 1ML IVPush PRN ×2 (02:30→04:30)
[2019-02-27] MEDS ORDERED: ONDANSETRON 2MG/ML, 2ML IVPush ONE (02:30)
--- NOTE | 2019-02-27 02:38 | NUR ---
TASK RN: PIV started.
[2019-02-27 02:40] LABS: ALANINE AMINOTRANSFERASE 28 U/L (12-78); ALBUMIN 3.9 g/dL (3.4-5.0); ANION GAP 6 mmol/L (5-15); CALCIUM 9.6 mg/dL (8.5-10.1); CHLORIDE 112 mmol/L (98-107); CREATININE 1.68 mg/dL (0.7-1.3)
[2019-02-27] MEDS ORDERED: ONDANSETRON 2MG/ML, 2ML ONE (02:41)
[2019-02-27] MEDS ORDERED: MORPHINE SULFATE 4 MG/ML, 1ML ONE (02:42)
[2019-02-27 02:44] LABS: ALKALINE PHOSPHATASE 91 U/L (45-117); BILIRUBIN,TOTAL 0.5 mg/dL (0.2-1.0); TOTAL PROTEIN 7.2 g/dL (6.4-8.2); TROPONIN I 0.029 ng/mL (0.000-0.045)
--- NOTE | 2019-02-27 02:49 | NUR ---
PT HERE FOR STERNAL CHEST PAIN THAT STARTE APPROX 1 HOUR AGO. PT HAD STENTS PLACED 3 DAYS AGO AND HAS FELT HIS BP INCREASE SINCE HE HAS BEEN HOME. PIV PLACED AND PT MEDICATED. 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 PT RESTING IN NAD. CALL LIGHT IN REACH
[2019-02-27] MEDS ORDERED: LABETALOL 5MG/ML, 20ML IVPush STA (03:17)
[2019-02-27] MEDS ORDERED: MAALOX/HYOSCYAMINE/LIDOCAINE 45 ML BTL PO ONE (03:30)
[2019-02-27] MEDS ORDERED: NITROGLYCERIN OINT 2%, 1GM TP ONE (03:30)
[2019-02-27] MEDS ORDERED: MAALOX/HYOSCYAMINE/LIDOCAINE 45 ML BTL ONE (03:31)
[2019-02-27] MEDS ORDERED: LABETALOL 5 MG/ML SYRINGE IVPush STA (03:39)
--- NOTE | 2019-02-27 03:46 | NUR ---
pt medicated with gi cocktail and labatlol. PT to floor. report to moy OVALLE.
[2019-02-27 03:59] VITALS: BP 154/94
[2019-02-27] MEDS ORDERED: DOCUSATE 100 MG CAPSULE PO PRN (04:00)
[2019-02-27] MEDS ORDERED: PANTOPRAZOLE 40 MG IV IVPush SCH (04:00)
[2019-02-27 04:24] VITALS: BP 154/94
[2019-02-27] MEDS ORDERED: ASPIRIN 81 MG TABLET EC PO SCH (06:00)
[2019-02-27 07:48] VITALS: BP 146/97
[2019-02-27] MEDS ORDERED: PRAZOSIN 2 MG CAPSULE ONE (07:58)
[2019-02-27] MEDS ORDERED: TAMSULOSIN 0.4 MG CAP.ER.24H PO SCH (09:00)
[2019-02-27] MEDS ORDERED: CLOPIDOGREL 75 MG TABLET PO SCH (09:00)
[2019-02-27] MEDS ORDERED: Bromfenac Sodium (Bromsite) RIGHTEYE SCH (09:00)
[2019-02-27] MEDS ORDERED: PRAZOSIN 1 MG CAPSULE PO SCH (09:00)
[2019-02-27] MEDS ORDERED: FINASTERIDE 5 MG TABLET PO SCH (09:00)
[2019-02-27] MEDS ORDERED: LABETALOL 200 MG TABLET PO SCH (09:00)
[2019-02-27] MEDS ORDERED: PREGABALIN 75 MG CAPSULE PO SCH (09:00)
[2019-02-27] MEDS ORDERED: ISOSORBIDE MONONITRATE ER 30 MG TABLET PO SCH (09:00)
[2019-02-27 09:16] LABS: TROPONIN I 0.035 ng/mL (0.000-0.045)
[2019-02-27 12:44] VITALS: BP 110/71
[2019-02-27 13:26] LABS: TROPONIN I 0.026 ng/mL (0.000-0.045)
[2019-02-27] MEDS ORDERED: DIFLUPREDNATE RIGHTEYE SCH (21:00)
[2019-02-27] MEDS ORDERED: ATORVASTATIN 80 MG TABLET PO SCH (21:00)
[2019-02-27] MEDS ORDERED: PANTOPROZOLE 40MG TABLET PO SCH (21:00)
== END 2019-02-27 16:03 | disposition home or self-care (01) ==
LOC: ED 02:53 → EDIP 03:08 → INTOOBSV 03:08 → 5SO 03:51 → DCLOUNGE 16:01
PROVIDERS: ADMIT Internal Medicine; ATTEND Internal Medicine
DX: R07.89 Other chest pain (principal); I25.10 Atherosclerotic heart disease of native coronary artery without angina pectoris; C76.0 Malignant neoplasm of head, face and neck; K22.2 Esophageal obstruction; N40.0 Benign prostatic hyperplasia without lower urinary tract symptoms; G62.9 Polyneuropathy, unspecified; I10 Essential (primary) hypertension; E78.5 Hyperlipidemia, unspecified; E78.00 Pure hypercholesterolemia, unspecified; Z86.73 Personal history of transient ischemic attack (TIA), and cerebral infarction without residual deficits; Z95.5 Presence of coronary angioplasty implant and graft; Z93.1 Gastrostomy status; Z92.21 Personal history of antineoplastic chemotherapy; Z85.89 Personal history of malignant neoplasm of other organs and systems; Z85.819 Personal history of malignant neoplasm of unspecified site of lip, oral cavity, and pharynx; Z85.01 Personal history of malignant neoplasm of esophagus; Z87.11 Personal history of peptic ulcer disease; Z95.1 Presence of aortocoronary bypass graft; Z92.3 Personal history of irradiation
CPT/HCPCS: 36415; 71045; 80053; 83880; 84484; 85025; 93005; 96374; 96375; 96376; 99284; C9113; G0378; J2405

== ENCOUNTER 2019-04-28 09:37 | Outpatient (CLI) | payer MEDICARE, MEDICAID | END 2019-04-28 23:59 | disposition home or self-care (01) | LOC: CVU 09:37 | PROVIDERS: ATTEND Internal Medicine Cardiovascular Disease | DX: I70.203 Unspecified atherosclerosis of native arteries of extremities, bilateral legs (principal); E78.5 Hyperlipidemia, unspecified; I10 Essential (primary) hypertension; I25.2 Old myocardial infarction; Z86.73 Personal history of transient ischemic attack (TIA), and cerebral infarction without residual deficits | CPT/HCPCS: 93798; 93880 ==

== ENCOUNTER 2019-06-07 22:19 | Inpatient (IN) | payer MEDICARE, MEDICAID ==
[~2019-06-07] VITALS: Ht 175.3 cm; Wt 89.6 kg
[2019-06-11 07:25] VITALS: BP 130/72
== END 2019-06-11 09:05 | disposition home or self-care (01) | DRG 305 ==
LOC: ED 23:20 → EDIP 06-08 00:23 → 5SO 06-08 00:38 → DCLOUNGE 06-11 09:00
PROVIDERS: ADMIT Family Medicine; ATTEND Family Medicine
DX: I16.0 Hypertensive urgency (principal); I25.110 Atherosclerotic heart disease of native coronary artery with unstable angina pectoris; I65.21 Occlusion and stenosis of right carotid artery; K22.2 Esophageal obstruction; Z88.8 Allergy status to other drugs, medicaments and biological substances; Z91.030 Bee allergy status; E78.5 Hyperlipidemia, unspecified; H40.9 Unspecified glaucoma; I12.9 Hypertensive chronic kidney disease with stage 1 through stage 4 chronic kidney disease, or unspecified chronic kidney disease; I25.2 Old myocardial infarction; N18.3 Chronic kidney disease, stage 3 (moderate); N40.0 Benign prostatic hyperplasia without lower urinary tract symptoms; Z83.2 Family history of diseases of the blood and blood-forming organs and certain disorders involving the immune mechanism; Z85.819 Personal history of malignant neoplasm of unspecified site of lip, oral cavity, and pharynx; Z85.89 Personal history of malignant neoplasm of other organs and systems; Z86.73 Personal history of transient ischemic attack (TIA), and cerebral infarction without residual deficits; Z87.891 Personal history of nicotine dependence; Z95.1 Presence of aortocoronary bypass graft; Z95.5 Presence of coronary angioplasty implant and graft
CPT/HCPCS: 36415; 70450; 70551; 71045; 78452; 80048; 80053; 80061; 82040; 82962; 84484; 85025; 85520; 93005; 96374; 96375; 96376; 99156; 99157; G0378; J1644; J1650; J2250; J2405; J3010; 92523-GN; A9502; C9898; J2270

== ENCOUNTER → 2019-10-10 | Outpatient (CLI) | payer MEDICAID, MEDICARE ==
[~2019-10-10] MED LIST changes: +ACYC15OI17 TP; -ACYC15OI6 TP; +BUPR1PAT20 TD; -LORA2ORA PO; +LORA2ORA7 PO; -NITR0.4T SL; +NITR0.4T41 SL
== END | disposition home or self-care (01) ==
LOC: RAD 08:42
PROVIDERS: ATTEND Registered Nurse
DX: R19.00 Intra-abdominal and pelvic swelling, mass and lump, unspecified site (principal)
CPT/HCPCS: 76700

== ENCOUNTER 2019-12-30 13:36 | Observation (INO) | payer MEDICARE ==
[~2019-12-30] VITALS: Ht 175.3 cm; Wt 93.7 kg
[2019-12-30] MEDS ORDERED: SODIUM CHLORIDE 0.9% 1,000 ML IV ONE (14:16)
[2019-12-30] MEDS ORDERED: NITROGLYCERIN SINGLE TAB 0.4 MG SL ONE (14:26)
[2019-12-30] MEDS ORDERED: SODIUM CHLORIDE FLUSH 10ML SYR IVF ONE (14:30)
[2019-12-30] MEDS ORDERED: NITROGLYCERIN SINGLE TAB 0.4 MG SL PRN ×2 (14:30→16:30)
[2019-12-30 14:53] LABS: BASOPHILS # (AUTO) 0.03 x10^3/uL (0-0.1); BASOPHILS % (AUTO) 0 % (0-1); EOSINOPHILS # (AUTO) 0.28 x10^3/uL (0-0.4); EOSINOPHILS % (AUTO) 3 % (1-7); LYMPHOCYTES # (AUTO) 1.43 x10^3/uL (1-3.4); LYMPHOCYTES % (AUTO) 13 % (22-44); MD NO; MEAN CORPUSCULAR HEMOGLOBIN 29.7 pg (27.5-34.5); MEAN CORPUSCULAR HGB CONC 33.6 g/dL (33.2-36.2); MEAN CORPUSCULAR VOLUME 88.4 fL (81-97); MEAN PLATELET VOLUME 7.3 fL (7.4-10.4); MONOCYTES # (AUTO) 1.08 x10^3/uL (0.2-0.8); MONOCYTES % (AUTO) 10 % (2-9); NEUTROPHILS # (AUTO) 8.15 x10^3/uL (1.8-6.8); NEUTROPHILS % (AUTO) 74 % (42-75); PLATELET COUNT 262 x10^3/uL (130-400); RED BLOOD COUNT 5.16 x10^6/uL (4.38-5.82); RED CELL DISTRIBUTION WIDTH 13.9 % (9.4-14.8)
[2019-12-30 15:03] LABS: ALBUMIN 3.6 g/dL (3.4-5.0); ANION GAP 8 mmol/L (5-15); CALCIUM 9.8 mg/dL (8.5-10.1); CHLORIDE 106 mmol/L (98-107); CREATININE 2.03 mg/dL (0.7-1.3)
[2019-12-30 15:07] LABS: ALKALINE PHOSPHATASE 105 U/L (45-117); BILIRUBIN,TOTAL 0.9 mg/dL (0.2-1.0); TOTAL PROTEIN 7.5 g/dL (6.4-8.2); TROPONIN I < 0.015 ng/mL (0.000-0.045)
[2019-12-30 15:13] LABS: ALANINE AMINOTRANSFERASE 21 U/L (12-78)
--- NOTE | 2019-12-30 15:15 | NUR ---
PT REFUSING ADDITIONAL DOSE OF NITRO, STATES PAIN 6/10 BUT NITRO GIVES HIM A HEADACHE
[2019-12-30] MEDS ORDERED: ONDANSETRON 2MG/ML, 2ML ONE (15:28)
[2019-12-30] MEDS ORDERED: MORPHINE SULFATE 4 MG/ML, 1ML ONE (15:28)
[2019-12-30] MEDS ORDERED: ONDANSETRON 2MG/ML, 2ML IVPush ONE (15:30)
[2019-12-30] MEDS ORDERED: MORPHINE SULFATE 4 MG/ML, 1ML IVPush PRN (15:30)
[2019-12-30] MEDS ORDERED: SODIUM CHLORIDE FLUSH 10ML SYR IVF PRN (16:30)
[2019-12-30] MEDS ORDERED: BACLOFEN 10 MG TABLET PO PRN (16:30)
[2019-12-30] MEDS ORDERED: DOCUSATE 100 MG CAPSULE PO PRN (16:30)
[2019-12-30] MEDS ORDERED: NITROGLYCERIN 0.4 MG BOTTLE (25 TABS) SL PRN (16:30)
[2019-12-30] MEDS ORDERED: MORPHINE SULFATE 4 MG/ML, 1ML IV PRN (16:30)
[2019-12-30] MEDS ORDERED: NITROGLYCERIN 0.4 MG/SPRAY SL PRN (16:30)
[2019-12-30] MEDS ORDERED: ACETAMINOPHEN 325 MG TABLET PO PRN (16:30)
[2019-12-30 17:01] LABS: CHOLESTEROL, TOTAL 72 mg/dL (140-239); TRIGLYCERIDES 116 mg/dL (50-200); VLDL CHOLESTEROL 23 mg/dL (0-25)
[2019-12-30 17:03] LABS: CHOL/HDL RATIO 1.4; HDL CHOL % 74 % (26-37); HDL CHOLESTEROL (DIRECT) 53 mg/dL (40-60)
[2019-12-30 17:08] LABS: LDL CHOLESTEROL,CALCULATED < 5 mg/dL (54-169); LDL/HDL RATIO 0.1 (0.5-3.0)
--- NOTE | 2019-12-30 17:08 | NUR ---
PT TO CT
--- NOTE | 2019-12-30 18:20 | NUR ---
PT RESTING IN GURNEY WITH AT BEDSIDE, AWAITING BED PLACEMENT.
[2019-12-30] MEDS: PRAZOSIN 1 MG CAPSULE PO SCH (21:00)
[2019-12-30 21:16] VITALS: BP 129/89
[2019-12-30] MEDS ORDERED: ATOR20TA37 PO (21:21)
[2019-12-30] MEDS ORDERED: BUPRENORPHINE /NALOXONE 2-0.5MG FILM SL SCH ×2 (22:00)
[2019-12-30 22:15] VITALS: BP 167/96
[2019-12-30] MEDS: LABETALOL 200 MG TABLET PO SCH (22:17)
[2019-12-30] MEDS: PREGABALIN 75 MG CAPSULE PO SCH (22:17)
[2019-12-30] MEDS: SODIUM CHLORIDE FLUSH 10ML SYR IVF SCH (22:18)
[2019-12-30] MEDS: AMLODIPINE 5 MG TABLET PO SCH (22:18)
[2019-12-30 22:24] LABS: TROPONIN I < 0.015 ng/mL (0.000-0.045)
[2019-12-30] MEDS ORDERED: PRAZ1CAP2 PO (22:44)
[2019-12-30] MEDS: ATORVASTATIN 80 MG TABLET PO SCH (22:49)
[2019-12-31 01:23] VITALS: BP 104/67
[2019-12-31 05:03] LABS: TROPONIN I < 0.015 ng/mL (0.000-0.045)
[2019-12-31] MEDS ORDERED: ASPIRIN 81 MG TABLET EC PO SCH (06:00)
[2019-12-31 07:55] VITALS: BP 119/70
[2019-12-31] MEDS: PREGABALIN 75 MG CAPSULE PO SCH ×2 (08:50→20:27)
[2019-12-31] MEDS: PRAZOSIN 1 MG CAPSULE PO SCH ×2 (08:50→20:27)
[2019-12-31] MEDS: ASPIRIN 325 MG TABLET EC PO SCH (08:51)
[2019-12-31] MEDS: CLOPIDOGREL 75 MG TABLET PO SCH (08:51)
[2019-12-31] MEDS: TAMSULOSIN 0.4 MG CAP.ER.24H PO SCH (08:51)
[2019-12-31] MEDS: AMLODIPINE 5 MG TABLET PO SCH ×2 (08:51→20:27)
[2019-12-31] MEDS: LABETALOL 200 MG TABLET PO SCH ×2 (08:51→20:27)
[2019-12-31] MEDS: SODIUM CHLORIDE FLUSH 10ML SYR IVF SCH ×2 (08:52→20:28)
[2019-12-31] MEDS: TEMPLATE NON-FORMULARY MED. (Bromfenac Sodium (Bromsite) 1 DROP) RIGHTEYE SCH (09:39)
[2019-12-31] MEDS ORDERED: REGADENOSON 0.4 MG/5 ML SYRINGE ONE (09:46)
[2019-12-31] MEDS: FINASTERIDE 5 MG TABLET PO SCH (12:34)
[2019-12-31] MEDS: ISOSORBIDE MONONITRATE ER 30 MG TABLET PO SCH (12:34)
[2019-12-31] MEDS: GUAIFENESIN 200 MG TABLET PO SCH ×3 (16:03→20:27)
[2019-12-31 16:14] LABS: BASOPHILS # (AUTO) 0.01 x10^3/uL (0-0.1); BASOPHILS % (AUTO) 0 % (0-1); EOSINOPHILS # (AUTO) 0.31 x10^3/uL (0-0.4); EOSINOPHILS % (AUTO) 3 % (1-7); LYMPHOCYTES # (AUTO) 1.56 x10^3/uL (1-3.4); LYMPHOCYTES % (AUTO) 17 % (22-44); MD NO; MEAN CORPUSCULAR HEMOGLOBIN 30.1 pg (27.5-34.5); MEAN CORPUSCULAR HGB CONC 33.7 g/dL (33.2-36.2); MEAN CORPUSCULAR VOLUME 89.3 fL (81-97); MEAN PLATELET VOLUME 8.7 fL (7.4-10.4); MONOCYTES # (AUTO) 0.82 x10^3/uL (0.2-0.8); MONOCYTES % (AUTO) 9 % (2-9); NEUTROPHILS # (AUTO) 6.66 x10^3/uL (1.8-6.8); NEUTROPHILS % (AUTO) 71 % (42-75); PLATELET COUNT 264 x10^3/uL (130-400); RED BLOOD COUNT 4.89 x10^6/uL (4.38-5.82); RED CELL DISTRIBUTION WIDTH 13.9 % (9.4-14.8)
[2019-12-31 16:27] LABS: ANION GAP 9 mmol/L (5-15); CALCIUM 9.4 mg/dL (8.5-10.1); CHLORIDE 109 mmol/L (98-107); CREATININE 1.97 mg/dL (0.7-1.3)
[2019-12-31 17:16] VITALS: BP 106/73
[2019-12-31] MEDS: SODIUM CHLORIDE 0.9% 1,000 ML IV SCH (18:40)
[2019-12-31] MEDS: ATORVASTATIN 80 MG TABLET PO SCH (20:27)
[2019-12-31] MEDS: FLUTICASONE NASAL SPRAY 16GM NAS SCH (20:28)
[2019-12-31] MEDS: SODIUM CHLORIDE NASAL SPRAY 45ML BOTTLE NAS SCH (20:28)
[2019-12-31 20:30] VITALS: BP 124/80
[2019-12-31] MEDS: morphine SULFATE 10 MG/ML, 1ML IVPush PRN (20:40)
[2020-01-01 00:31] VITALS: BP 110/71
[2020-01-01] MEDS: SODIUM CHLORIDE 0.9% 1,000 ML IV SCH ×2 (00:40→09:20)
[2020-01-01 05:16] LABS: ANION GAP 8 mmol/L (5-15); CALCIUM 9.1 mg/dL (8.5-10.1); CHLORIDE 110 mmol/L (98-107)
[2020-01-01] MEDS: ASPIRIN 325 MG TABLET EC PO SCH (05:29)
[2020-01-01] MEDS: GUAIFENESIN 200 MG TABLET PO SCH ×4 (05:29→21:46)
[2020-01-01 06:42] VITALS: BP 117/76
[2020-01-01] MEDS ORDERED: PHARMACY MAY ADJ FOR RENAL FX MC PRN (09:00)
[2020-01-01] MEDS: TEMPLATE NON-FORMULARY MED. (Bromfenac Sodium (Bromsite) 1 DROP) RIGHTEYE SCH (09:10)
[2020-01-01] MEDS: CLOPIDOGREL 75 MG TABLET PO SCH (09:20)
[2020-01-01] MEDS: FINASTERIDE 5 MG TABLET PO SCH (09:20)
[2020-01-01] MEDS: ISOSORBIDE MONONITRATE ER 30 MG TABLET PO SCH (09:20)
[2020-01-01] MEDS: PREGABALIN 75 MG CAPSULE PO SCH ×2 (09:20→21:46)
[2020-01-01] MEDS: TAMSULOSIN 0.4 MG CAP.ER.24H PO SCH (09:21)
[2020-01-01] MEDS: SODIUM CHLORIDE NASAL SPRAY 45ML BOTTLE NAS SCH ×2 (09:21→21:45)
[2020-01-01] MEDS: AMLODIPINE 5 MG TABLET PO SCH ×2 (09:21→21:46)
[2020-01-01] MEDS: PRAZOSIN 1 MG CAPSULE PO SCH ×2 (09:21→21:47)
[2020-01-01] MEDS: FLUTICASONE NASAL SPRAY 16GM NAS SCH ×2 (09:21→21:45)
[2020-01-01] MEDS: SODIUM CHLORIDE FLUSH 10ML SYR IVF SCH ×2 (09:25→21:45)
[2020-01-01] MEDS: LABETALOL 200 MG TABLET PO SCH ×3 (09:25→21:50)
[2020-01-01 13:02] VITALS: BP 107/67
[2020-01-01 16:05] LABS: MICROSCOPIC AUTO
[2020-01-01 16:06] LABS: CULTURE INDICATED? NO
[2020-01-01] MEDS: morphine SULFATE 10 MG/ML, 1ML IVPush PRN ×2 (16:11→22:05)
--- NOTE | 2020-01-01 18:00 | NUR ---
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
[2020-01-01 19:34] VITALS: BP 129/69
[2020-01-01] MEDS: ATORVASTATIN 80 MG TABLET PO SCH (21:46)
[2020-01-02] MEDS: SODIUM CHLORIDE 0.9% 1,000 ML IV SCH ×2 (00:49→09:55)
[2020-01-02 01:31] VITALS: BP 144/90
[2020-01-02 05:21] LABS: ANION GAP 7 mmol/L (5-15); BASOPHILS # (AUTO) 0.02 x10^3/uL (0-0.1); BASOPHILS % (AUTO) 0 % (0-1); CALCIUM 9.1 mg/dL (8.5-10.1); CHLORIDE 111 mmol/L (98-107); CREATININE 1.75 mg/dL (0.7-1.3); EOSINOPHILS # (AUTO) 0.32 x10^3/uL (0-0.4); EOSINOPHILS % (AUTO) 4 % (1-7); LYMPHOCYTES # (AUTO) 1.21 x10^3/uL (1-3.4); LYMPHOCYTES % (AUTO) 13 % (22-44); MD NO; MEAN CORPUSCULAR HEMOGLOBIN 29.9 pg (27.5-34.5); MEAN CORPUSCULAR HGB CONC 33.7 g/dL (33.2-36.2); MEAN CORPUSCULAR VOLUME 88.8 fL (81-97); MEAN PLATELET VOLUME 7.4 fL (7.4-10.4); MONOCYTES # (AUTO) 0.97 x10^3/uL (0.2-0.8); MONOCYTES % (AUTO) 11 % (2-9); NEUTROPHILS # (AUTO) 6.56 x10^3/uL (1.8-6.8); NEUTROPHILS % (AUTO) 72 % (42-75); PLATELET COUNT 271 x10^3/uL (130-400); RED BLOOD COUNT 4.46 x10^6/uL (4.38-5.82); RED CELL DISTRIBUTION WIDTH 13.6 % (9.4-14.8)
[2020-01-02] MEDS: ASPIRIN 325 MG TABLET EC PO SCH (06:28)
[2020-01-02] MEDS: GUAIFENESIN 200 MG TABLET PO SCH ×2 (06:28→09:49)
[2020-01-02 07:19] VITALS: BP 162/107
[2020-01-02] MEDS: TEMPLATE NON-FORMULARY MED. (Bromfenac Sodium (Bromsite) 1 DROP) RIGHTEYE SCH (09:00)
[2020-01-02] MEDS: SODIUM CHLORIDE NASAL SPRAY 45ML BOTTLE NAS SCH (09:43)
[2020-01-02] MEDS: FLUTICASONE NASAL SPRAY 16GM NAS SCH (09:44)
[2020-01-02] MEDS: FINASTERIDE 5 MG TABLET PO SCH (09:46)
[2020-01-02] MEDS: CLOPIDOGREL 75 MG TABLET PO SCH (09:47)
[2020-01-02] MEDS: LABETALOL 200 MG TABLET PO SCH (09:48)
[2020-01-02] MEDS: TAMSULOSIN 0.4 MG CAP.ER.24H PO SCH (09:48)
[2020-01-02] MEDS: PREGABALIN 75 MG CAPSULE PO SCH (09:49)
[2020-01-02] MEDS: PRAZOSIN 1 MG CAPSULE PO SCH (09:50)
[2020-01-02] MEDS: AMLODIPINE 5 MG TABLET PO SCH (09:50)
[2020-01-02] MEDS: ISOSORBIDE MONONITRATE ER 30 MG TABLET PO SCH (09:50)
[2020-01-02] MEDS: SODIUM CHLORIDE FLUSH 10ML SYR IVF SCH (09:56)
[2020-01-02] MEDS ORDERED: ACET325T26 PO (11:41)
[2020-01-02] MEDS ORDERED: FLUT16SP24 NAS (11:41)
[2020-01-02] MEDS ORDERED: GUAI200T37 PO (11:41)
[2020-01-02] MEDS ORDERED: SODI44SP NAS (11:41)
[2020-01-02] MEDS ORDERED: LEVO250T8 PO (11:41)
[2020-01-02] MEDS ORDERED: LEVOFLOXACIN 250 MG TABLET PO SCH (12:00)
[2020-01-02 12:17] VITALS: BP 127/71
== END 2020-01-02 13:13 | disposition home or self-care (01) ==
LOC: ED 16:00 → EDIP 16:01 → INTOOBSV 16:01 → ED 16:38 → 5SO 21:34 → INTOOBSV 01-01 16:48 → OBSVTOIN 01-01 16:48 → DCLOUNGE 01-02 13:06
PROVIDERS: ADMIT Hospitalist; ATTEND Hospitalist
DX: R13.10 Dysphagia, unspecified (principal); R07.89 Other chest pain; J69.0 Pneumonitis due to inhalation of food and vomit; N17.0 Acute kidney failure with tubular necrosis; R65.10 Systemic inflammatory response syndrome (SIRS) of non-infectious origin without acute organ dysfunction; J98.11 Atelectasis; E78.5 Hyperlipidemia, unspecified; I25.10 Atherosclerotic heart disease of native coronary artery without angina pectoris; N18.3 Chronic kidney disease, stage 3 (moderate); N40.0 Benign prostatic hyperplasia without lower urinary tract symptoms; I65.29 Occlusion and stenosis of unspecified carotid artery; I25.2 Old myocardial infarction; I13.10 Hypertensive heart and chronic kidney disease without heart failure, with stage 1 through stage 4 chronic kidney disease, or unspecified chronic kidney disease; Q21.9 Congenital malformation of cardiac septum, unspecified; Z95.1 Presence of aortocoronary bypass graft; Z86.73 Personal history of transient ischemic attack (TIA), and cerebral infarction without residual deficits; Z79.82 Long term (current) use of aspirin
CPT/HCPCS: 36415; 70490; 71250; 74230; 76770; 78452; 80048; 80053; 80061; 81001; 82550; 82570; 83605; 83880; 84300; 84484; 85025; 87040; 92526; 92611; 93005; 93017; 93306; 96374; 96375; 96376; 99285; A9502; C9898; G0378; J2270; J2405; J2785; J7030

== ENCOUNTER 2020-04-21 00:57 | Emergency (ER) | payer MEDICARE, MEDICAID ==
[~2020-04-21] VITALS: Ht 175.3 cm; Wt 91.0 kg
[~2020-04-21 00:57] MED LIST changes: +ACET325T26 PO; +ATOR20TA37 PO; +FLUT16SP24 NAS; +GUAI200T37 PO; +LEVO250T8 PO; +SODI44SP NAS
[2020-04-21] MEDS ORDERED: ONDANSETRON 2MG/ML, 2ML ONE (01:29)
[2020-04-21] MEDS ORDERED: ASPIRIN 81 MG TABLET CHEW ONE (01:29)
[2020-04-21] MEDS ORDERED: ASPIRIN 81 MG TABLET CHEW PO ONE (01:30)
[2020-04-21] MEDS ORDERED: ONDANSETRON 2MG/ML, 2ML IVPush ONE (01:30)
[2020-04-21] MEDS ORDERED: MORPHINE SULFATE 4 MG/ML, 1ML ONE ×2 (01:30→03:09)
[2020-04-21] MEDS: MORPHINE SULFATE 4 MG/ML, 1ML IVPush PRN ×2 (01:33→03:11)
[2020-04-21 01:50] LABS: BASOPHILS # (AUTO) 0.11 x10^3/uL (0-0.1); BASOPHILS % (AUTO) 2 % (0-1); EOSINOPHILS # (AUTO) 0.42 x10^3/uL (0-0.4); EOSINOPHILS % (AUTO) 6 % (1-7); LYMPHOCYTES # (AUTO) 2.16 x10^3/uL (1-3.4); LYMPHOCYTES % (AUTO) 29 % (22-44); MD NO; MEAN CORPUSCULAR HEMOGLOBIN 29.7 pg (27.5-34.5); MEAN CORPUSCULAR HGB CONC 33.6 g/dL (33.2-36.2); MEAN CORPUSCULAR VOLUME 88.5 fL (81-97); MONOCYTES # (AUTO) 0.74 x10^3/uL (0.2-0.8); MONOCYTES % (AUTO) 10 % (2-9); NEUTROPHILS # (AUTO) 4.15 x10^3/uL (1.8-6.8); NEUTROPHILS % (AUTO) 55 % (42-75); PLATELET COUNT 250 x10^3/uL (130-400); RED BLOOD COUNT 4.87 x10^6/uL (4.38-5.82); RED CELL DISTRIBUTION WIDTH 14.5 % (9.4-14.8)
[2020-04-21 01:59] LABS: ALBUMIN 3.7 g/dL (3.4-5.0); ANION GAP 7 mmol/L (5-15); CALCIUM 8.9 mg/dL (8.5-10.1); CHLORIDE 108 mmol/L (98-107); CREATININE 2.21 mg/dL (0.7-1.3)
[2020-04-21 02:03] LABS: TROPONIN I < 0.015 ng/mL (0.000-0.045)
[2020-04-21 04:06] LABS: TROPONIN I < 0.015 ng/mL (0.000-0.045)
[2020-04-21 05:07] VITALS: BP 136/76
== END 2020-04-21 05:09 | disposition home or self-care (01) ==
LOC: ED 04:35
DX: R07.89 Other chest pain (principal); I10 Essential (primary) hypertension; I21.9 Acute myocardial infarction, unspecified; R51 Headache; E78.5 Hyperlipidemia, unspecified; I25.10 Atherosclerotic heart disease of native coronary artery without angina pectoris; Z86.718 Personal history of other venous thrombosis and embolism; Z95.1 Presence of aortocoronary bypass graft
CPT/HCPCS: 36415; 71045; 80048; 82040; 83880; 84484; 85025; 93005; 96374; 96375; 96376; 99285; J2270; J2405

== ENCOUNTER 2020-06-28 07:54 | Observation (INO) | payer MEDICARE, MEDICAID ==
[~2020-06-28] VITALS: Ht 175.3 cm; Wt 97.1 kg
[2020-06-28] MEDS ORDERED: PLEASE ENTER HEIGHT AND WEIGHT MC SCH (08:21)
[2020-06-28 08:22] VITALS: BP 183/122
[2020-06-28] MEDS ORDERED: CLOPIDOGREL 75 MG TABLET PO ONE (08:30)
[2020-06-28] MEDS ORDERED: ZOLP10TA PO (08:37)
[2020-06-28] MEDS ORDERED: LABE200T6 PO (08:37)
[2020-06-28] MEDS ORDERED: OXYC5TAB3 PO (08:43)
[2020-06-28] MEDS ORDERED: BUPR300F3 PO (08:43)
[2020-06-28] MEDS ORDERED: LOSA25TA25 PO (08:43)
[2020-06-28] MEDS ORDERED: EVOL140S2 SQ (08:43)
[2020-06-28] MEDS ORDERED: ONDANSETRON PO (08:43)
[2020-06-28] MEDS ORDERED: CLOPIDOGREL 75 MG TABLET ONE (08:49)
[2020-06-28] MEDS ORDERED: MIDAZOLAM 1 MG/ML, 2ML ONE (09:27)
[2020-06-28] MEDS ORDERED: VERAPAMIL 2.5 MG/ML, 2ML ONE (09:27)
[2020-06-28] MEDS ORDERED: LIDOCAINE-MPF 1%, 5ML ONE (09:27)
[2020-06-28] MEDS ORDERED: HEPARIN 1,000 UNITS/ML, 10ML ONE (09:27)
[2020-06-28] MEDS ORDERED: FENTANYL PF 100 MCG/2ML ONE (09:27)
[2020-06-28] MEDS ORDERED: BIVALIRUDIN 250 MG ONE (09:48)
[2020-06-28] MEDS ORDERED: TICAGRELOR 90 MG TABLET ONE (09:48)
[2020-06-28 11:00] VITALS: BP 156/99
[2020-06-28] MEDS: OXYcodone IR 5MG TABLET PO PRN ×2 (12:23→21:04)
[2020-06-28] MEDS ORDERED: ONDANSETRON ODT 4 MG PO PRN (12:30)
[2020-06-28] MEDS ORDERED: FLUTICASONE NASAL SPRAY 16GM NAS PRN (12:30)
[2020-06-28] MEDS ORDERED: SODIUM CHLORIDE NASAL SPRAY 45ML BOTTLE NAS PRN (12:30)
[2020-06-28] MEDS ORDERED: ZOLPIDEM 10MG TABLET PO PRN (12:30)
[2020-06-28] MEDS ORDERED: NITROGLYCERIN 0.4 MG BOTTLE (25 TABS) SL PRN (12:30)
[2020-06-28] MEDS ORDERED: morphine SULFATE 10 MG/ML, 1ML IVPush PRN (12:30)
[2020-06-28] MEDS ORDERED: DOCUSATE 100 MG CAPSULE PO PRN (12:30)
[2020-06-28] MEDS: SODIUM CHLORIDE 0.9% 1,000 ML IV SCH ×2 (12:50→15:59)
[2020-06-28 13:54] VITALS: BP 149/65
[2020-06-28 17:55] VITALS: BP 164/107
[2020-06-28] MEDS ORDERED: LABETALOL 100 MG TABLET ONE (17:56)
[2020-06-28] MEDS: LABETALOL 200 MG TABLET PO SCH (17:59)
[2020-06-28 20:58] VITALS: BP 128/82
[2020-06-28] MEDS ORDERED: ATORVASTATIN 80 MG TABLET PO SCH (21:00)
[2020-06-28] MEDS: PREGABALIN 75 MG CAPSULE PO SCH (21:01)
[2020-06-29] MEDS: SODIUM CHLORIDE 0.9% 1,000 ML IV SCH ×2 (01:35→09:22)
[2020-06-29 01:50] VITALS: BP 137/87
[2020-06-29 05:07] LABS: CHLORIDE 107 mmol/L (98-107)
[2020-06-29 05:12] LABS: ANION GAP 6 mmol/L (5-15); CALCIUM 9.8 mg/dL (8.5-10.1); CREATININE 1.91 mg/dL (0.7-1.3)
[2020-06-29] MEDS ORDERED: ASPIRIN 81 MG TABLET EC PO SCH (06:00)
[2020-06-29] MEDS ORDERED: PRAZOSIN 2 MG CAPSULE PO SCH (09:00)
[2020-06-29] MEDS ORDERED: CLOPIDOGREL 75 MG TABLET PO SCH (09:00)
[2020-06-29] MEDS ORDERED: LOSARTAN 25MG TABLET PO SCH (09:00)
[2020-06-29] MEDS ORDERED: TAMSULOSIN 0.4 MG CAP.ER.24H PO SCH (09:00)
[2020-06-29] MEDS ORDERED: FINASTERIDE 5 MG TABLET PO SCH (09:00)
[2020-06-29 09:19] VITALS: BP 136/75
[2020-06-29] MEDS: LABETALOL 200 MG TABLET PO SCH (09:21)
[2020-06-29] MEDS: PREGABALIN 75 MG CAPSULE PO SCH (09:21)
== END 2020-06-29 15:35 | disposition home or self-care (01) ==
LOC: CACL 07:54 → 5SO 10:23 → INTOOBSV 12:11 → 5SO 12:11 → CACL 12:11 → DCLOUNGE 06-29 15:28
PROVIDERS: ADMIT Internal Medicine Cardiovascular Disease; ATTEND Internal Medicine Cardiovascular Disease
DX: I25.10 Atherosclerotic heart disease of native coronary artery without angina pectoris (principal); I12.9 Hypertensive chronic kidney disease with stage 1 through stage 4 chronic kidney disease, or unspecified chronic kidney disease; N18.9 Chronic kidney disease, unspecified; C76.0 Malignant neoplasm of head, face and neck; E78.2 Mixed hyperlipidemia; I67.9 Cerebrovascular disease, unspecified; R25.1 Tremor, unspecified; I42.9 Cardiomyopathy, unspecified; E78.5 Hyperlipidemia, unspecified; Z79.82 Long term (current) use of aspirin; Z79.899 Other long term (current) drug therapy; Z86.73 Personal history of transient ischemic attack (TIA), and cerebral infarction without residual deficits; Z88.0 Allergy status to penicillin
CPT/HCPCS: 36415; 80048; 92920; 93458; 99156; 99157; C1725; C1769; C1887; C1894; G0378; J0583; J1644; J2250; J3010; Q9967

== ENCOUNTER 2020-08-09 08:54 | Day surgery (SDC) | payer MEDICARE, MEDICAID ==
[~2020-08-09] VITALS: Ht 175.3 cm; Wt 91.8 kg
[~2020-08-09 08:54] MED LIST changes: +BUPR300F3 PO; +EVOL140S2 SQ; +LOSA25TA25 PO; +ONDANSETRON PO; +ZOLP10TA PO
[2020-08-09 10:05] VITALS: BP 172/103
[2020-08-09] MEDS ORDERED: NITROGLYCERIN 0.4 MG BOTTLE (25 TABS) SL ONE (10:19)
[2020-08-09] MEDS: NITROGLYCERIN 0.4 MG BOTTLE (25 TABS) SL PRN ×3 (10:21→10:42)
[2020-08-09] MEDS ORDERED: PLEASE ENTER HEIGHT AND WEIGHT MC SCH (10:30)
[2020-08-09] MEDS ORDERED: SODIUM BICARBONATE 8.4% 150 MEQ in DEXTROSE 5% 1,000 ML IV SCH (10:30)
[2020-08-09] MEDS ORDERED: LABETALOL 100 MG TABLET PO STA (10:37)
[2020-08-09 10:41] LABS: BASOPHILS % (AUTO) 1 % (0-1); EOSINOPHILS % (AUTO) 7 % (1-7); LYMPHOCYTES % (AUTO) 20 % (22-44); MEAN CORPUSCULAR HEMOGLOBIN 29.4 pg (27.5-34.5); MEAN CORPUSCULAR HGB CONC 33.5 g/dL (33.2-36.2); MONOCYTES % (AUTO) 10 % (2-9); NEUTROPHILS % (AUTO) 62 % (42-75); PLATELET COUNT 237 x10^3/uL (130-400); RED BLOOD COUNT 5.45 x10^6/uL (4.38-5.82); RED CELL DISTRIBUTION WIDTH 14.1 % (9.4-14.8)
[2020-08-09 10:43] LABS: MD NO
[2020-08-09 10:52] LABS: ANION GAP 6 mmol/L (5-15); CALCIUM 10.5 mg/dL (8.5-10.1); CHLORIDE 109 mmol/L (98-107); CREATININE 2.27 mg/dL (0.7-1.3)
[2020-08-09] MEDS ORDERED: LIDOCAINE-MPF 1%, 5ML ONE (11:16)
[2020-08-09] MEDS ORDERED: FENTANYL PF 100 MCG/2ML ONE (11:16)
[2020-08-09] MEDS ORDERED: HEPARIN 1,000 UNITS/ML, 10ML ONE (11:16)
[2020-08-09] MEDS ORDERED: VERAPAMIL 2.5 MG/ML, 2ML ONE (11:16)
[2020-08-09] MEDS ORDERED: MIDAZOLAM 1 MG/ML, 2ML ONE (11:16)
[2020-08-09] MEDS ORDERED: NITROGLYCERIN 30 MCG/ML, 20ML VIAL ONE (11:17)
[2020-08-09] MEDS ORDERED: SODIUM CHLORIDE 0.9% 1,000 ML IV SCH (13:00)
[2020-08-09] MEDS ORDERED: ISOS30TA8 PO (13:19)
[2020-08-09] MEDS ORDERED: AMLO-150 PO (13:20)
== END 2020-08-09 14:46 | disposition home or self-care (01) ==
LOC: CACL 08:54
PROVIDERS: ATTEND Internal Medicine Cardiovascular Disease
DX: I25.110 Atherosclerotic heart disease of native coronary artery with unstable angina pectoris (principal); I25.82 Chronic total occlusion of coronary artery; I42.9 Cardiomyopathy, unspecified; C76.0 Malignant neoplasm of head, face and neck; I12.9 Hypertensive chronic kidney disease with stage 1 through stage 4 chronic kidney disease, or unspecified chronic kidney disease; N18.9 Chronic kidney disease, unspecified; I67.9 Cerebrovascular disease, unspecified; E78.2 Mixed hyperlipidemia; Z79.82 Long term (current) use of aspirin; Z79.891 Long term (current) use of opiate analgesic; Z79.899 Other long term (current) drug therapy; Z88.1 Allergy status to other antibiotic agents; Z88.8 Allergy status to other drugs, medicaments and biological substances; Z91.030 Bee allergy status; Z95.5 Presence of coronary angioplasty implant and graft
CPT/HCPCS: 36415; 80048; 85025; 93005; 93458; 93571; 99156; 99157; C1769; C1887; C1894; J1644; J2250; J3010; J7070; Q9967

== ENCOUNTER → 2020-11-18 | Outpatient (CLI) | payer MEDICARE, MEDICAID ==
[~2020-11-18] MED LIST changes: +AMLO-211 PO; -AMLO10TA8 PO
== END | disposition home or self-care (01) ==
LOC: STAR 10:24
PROVIDERS: ATTEND Anesthesiology
DX: Z01.818 Encounter for other preprocedural examination (principal); I44.0 Atrioventricular block, first degree; I25.2 Old myocardial infarction; R94.31 Abnormal electrocardiogram [ECG] [EKG]
CPT/HCPCS: 71045; 93005

== ENCOUNTER → 2021-01-14 | Outpatient (CLI) | payer MEDICARE, MEDICAID ==
[~2021-01-14] MED LIST changes: -OXYC5TAB3 PO; +OXYC5TAB98 PO
[2021-01-14 10:12] LABS: BASOPHILS % (AUTO) 1 % (0-1); EOSINOPHILS % (AUTO) 8 % (1-7); LYMPHOCYTES % (AUTO) 20 % (22-44); MEAN CORPUSCULAR HGB CONC 33.7 g/dL (33.2-36.2); MEAN PLATELET VOLUME 7.9 fL (7.4-10.4); MONOCYTES % (AUTO) 12 % (2-9); NEUTROPHILS % (AUTO) 59 % (42-75); PLATELET COUNT 230 x10^3/uL (130-400); RED BLOOD COUNT 5.26 x10^6/uL (4.38-5.82); RED CELL DISTRIBUTION WIDTH 14.5 % (9.4-14.8)
[2021-01-14 10:18] LABS: MICROSCOPIC AUTO
[2021-01-14 10:25] LABS: ALANINE AMINOTRANSFERASE 32 U/L (12-78); ALBUMIN 3.8 g/dL (3.4-5.0); ANION GAP 6 mmol/L (5-15); CHLORIDE 110 mmol/L (98-107); CREATININE 2.59 mg/dL (0.7-1.3)
[2021-01-14 10:27] LABS: ALKALINE PHOSPHATASE 85 U/L (45-117); BILIRUBIN,TOTAL 0.6 mg/dL (0.2-1.0); TOTAL PROTEIN 7.5 g/dL (6.4-8.2)
[2021-01-14 10:34] LABS: INTERNATIONAL NORMALIZED RATIO 0.96 (0.93-1.1); PROTHROMBIN TIME 10.3 Seconds (9.6-11.5)
[2021-01-14 10:38] LABS: MD NO
== END | disposition home or self-care (01) ==
LOC: STAR 09:05
PROVIDERS: ATTEND Student in an Organized Health Care Education/Training Program
DX: Z01.818 Encounter for other preprocedural examination (principal); N40.1 Benign prostatic hyperplasia with lower urinary tract symptoms; R94.31 Abnormal electrocardiogram [ECG] [EKG]; I49.3 Ventricular premature depolarization; Z20.822 Contact with and (suspected) exposure to COVID-19
CPT/HCPCS: 36415; 80053; 81001; 85025; 85610; 87086; 93005; U0003

== ENCOUNTER 2021-03-18 10:53 | Observation (INO) | payer MEDICARE, MEDICAID ==
[~2021-03-18] VITALS: Ht 175.3 cm; Wt 100.5 kg
--- NOTE | 2021-03-18 11:05 | NUR ---
RENEWALS SPECIALIST: EKG COMPLETED IN TRIAGE.
--- NOTE | 2021-03-18 11:20 | NUR ---
TASK RN: 20 GAUGE IV STARTED LEFT HAND, BLOOD COLLECTED, LABELLED AT BEDSIDE AT SENT TO LAB.
[2021-03-18 11:28] LABS: BASOPHILS % (AUTO) 1 % (0-1); EOSINOPHILS % (AUTO) 6 % (1-7); LYMPHOCYTES % (AUTO) 17 % (22-44); MEAN CORPUSCULAR HEMOGLOBIN 30.1 pg (27.5-34.5); MEAN CORPUSCULAR HGB CONC 33.5 g/dL (33.2-36.2); MEAN PLATELET VOLUME 7.7 fL (7.4-10.4); MONOCYTES % (AUTO) 11 % (2-9); NEUTROPHILS % (AUTO) 66 % (42-75); PLATELET COUNT 254 x10^3/uL (130-400); RED BLOOD COUNT 5.26 x10^6/uL (4.38-5.82); RED CELL DISTRIBUTION WIDTH 14.7 % (9.4-14.8)
[2021-03-18 11:29] LABS: MD NO
[2021-03-18] MEDS ORDERED: SODIUM CHLORIDE FLUSH 10ML SYR IVF ONE (11:30)
[2021-03-18] MEDS ORDERED: ASPIRIN 81 MG TABLET CHEW PO ONE (11:30)
[2021-03-18 11:42] LABS: ALBUMIN 3.7 g/dL (3.4-5.0); ANION GAP 6 mmol/L (5-15); CALCIUM 9.8 mg/dL (8.5-10.1); CHLORIDE 111 mmol/L (98-107)
[2021-03-18 11:45] LABS: ALANINE AMINOTRANSFERASE 34 U/L (12-78); ALKALINE PHOSPHATASE 87 U/L (45-117); BILIRUBIN,TOTAL 0.5 mg/dL (0.2-1.0); CREATININE 2.51 mg/dL (0.7-1.3); TOTAL PROTEIN 7.7 g/dL (6.4-8.2); TROPONIN I < 0.015 ng/mL (0.000-0.045)
[2021-03-18] MEDS ORDERED: ONDANSETRON 2MG/ML, 2ML ONE (11:50)
[2021-03-18] MEDS ORDERED: MORPHINE SULFATE 4 MG/ML, 1ML ONE (11:50)
[2021-03-18] MEDS ORDERED: ONDANSETRON 2MG/ML, 2ML IVPush ONE (12:00)
[2021-03-18] MEDS ORDERED: MORPHINE SULFATE 4 MG/ML, 1ML IVPush PRN (12:00)
[2021-03-18] MEDS ORDERED: NITROGLYCERIN 0.4 MG BOTTLE (25 TABS) SL ONE (13:53)
[2021-03-18 13:59] VITALS: BP 175/95
[2021-03-18] MEDS ORDERED: NITROGLYCERIN 0.4 MG BOTTLE (25 TABS) SL PRN (14:00)
[2021-03-18 14:15] VITALS: BP 160/95
[2021-03-18] MEDS ORDERED: ENALAPRILAT 1.25 MG/ML, 2ML IVPush PRN (14:30)
[2021-03-18] MEDS ORDERED: MELATONIN 5 MG TABLET PO PRN (14:30)
[2021-03-18] MEDS ORDERED: POLYETHYLENE GLYCOL 17 GM PACKET PO PRN (14:30)
[2021-03-18] MEDS ORDERED: ONDANSETRON 2MG/ML, 2ML IVPush PRN (14:30)
[2021-03-18] MEDS ORDERED: ACETAMINOPHEN 325 MG TABLET PO PRN (14:30)
[2021-03-18 14:58] LABS: TROPONIN I < 0.015 ng/mL (0.000-0.045)
[2021-03-18] MEDS: morphine SULFATE 10 MG/ML, 1ML IVPush PRN ×2 (15:12→18:20)
[2021-03-18] MEDS: HEPARIN 5,000 UNITS/ML, 1ML SQ SCH ×2 (15:15→22:12)
[2021-03-18 20:18] LABS: TROPONIN I < 0.015 ng/mL (0.000-0.045)
[2021-03-18] MEDS ORDERED: ATORVASTATIN 80 MG TABLET PO SCH (21:00)
[2021-03-18] MEDS ORDERED: FINASTERIDE 5 MG TABLET PO SCH (21:00)
[2021-03-18] MEDS: PREGABALIN 100 MG CAPSULE PO SCH (22:04)
[2021-03-18 22:08] VITALS: BP 167/104
[2021-03-18] MEDS: PRAZOSIN 2 MG CAPSULE PO SCH (22:10)
[2021-03-18] MEDS: LABETALOL 100 MG TABLET PO SCH (22:11)
[2021-03-19 02:48] VITALS: BP 126/84
[2021-03-19 05:28] LABS: BASOPHILS % (AUTO) 1 % (0-1); EOSINOPHILS % (AUTO) 7 % (1-7); LYMPHOCYTES % (AUTO) 30 % (22-44); MEAN CORPUSCULAR HEMOGLOBIN 30.3 pg (27.5-34.5); MEAN CORPUSCULAR HGB CONC 33.8 g/dL (33.2-36.2); MEAN PLATELET VOLUME 8.4 fL (7.4-10.4); MONOCYTES % (AUTO) 11 % (2-9); NEUTROPHILS % (AUTO) 51 % (42-75); PLATELET COUNT 243 x10^3/uL (130-400); RED BLOOD COUNT 4.63 x10^6/uL (4.38-5.82); RED CELL DISTRIBUTION WIDTH 14.9 % (9.4-14.8)
[2021-03-19 05:29] LABS: MD NO
[2021-03-19 05:33] LABS: ALBUMIN 3.3 g/dL (3.4-5.0); ANION GAP 5 mmol/L (5-15); CALCIUM 9.3 mg/dL (8.5-10.1); CHLORIDE 108 mmol/L (98-107)
[2021-03-19 05:38] LABS: ALANINE AMINOTRANSFERASE 32 U/L (12-78); ALKALINE PHOSPHATASE 78 U/L (45-117); BILIRUBIN,TOTAL 0.6 mg/dL (0.2-1.0); CREATININE 2.36 mg/dL (0.7-1.3); TOTAL PROTEIN 6.4 g/dL (6.4-8.2)
[2021-03-19] MEDS: HEPARIN 5,000 UNITS/ML, 1ML SQ SCH (05:56)
[2021-03-19] MEDS ORDERED: ASPIRIN 81 MG TABLET EC PO SCH (06:00)
[2021-03-19 07:24] VITALS: BP 117/77
[2021-03-19] MEDS ORDERED: REGADENOSON 0.4 MG/5 ML SYRINGE ONE (07:34)
[2021-03-19] MEDS ORDERED: CLOPIDOGREL 75 MG TABLET PO SCH (09:00)
[2021-03-19] MEDS: LABETALOL 100 MG TABLET PO SCH (09:00)
[2021-03-19] MEDS ORDERED: TAMSULOSIN 0.4 MG CAP.ER.24H PO SCH (09:00)
[2021-03-19] MEDS ORDERED: AMLODIPINE 5 MG TABLET PO SCH (09:00)
[2021-03-19] MEDS ORDERED: LOSARTAN 25MG TABLET PO SCH (09:00)
[2021-03-19] MEDS: PREGABALIN 100 MG CAPSULE PO SCH (09:57)
[2021-03-19] MEDS: PRAZOSIN 2 MG CAPSULE PO SCH (09:57)
[2021-03-19] MEDS ORDERED: OXYcodone IR 5MG TABLET ONE (10:27)
[2021-03-19] MEDS ORDERED: OXYcodone IR 5MG TABLET PO PRN (10:30)
== END 2021-03-19 13:45 | disposition home or self-care (01) ==
LOC: ED 11:45 → INTOOBSV 12:33 → EDIP 12:33 → 5SO 13:53 → DCLOUNGE 03-19 13:42
PROVIDERS: ADMIT Internal Medicine; ATTEND Hospitalist
DX: R07.89 Other chest pain (principal); I16.1 Hypertensive emergency; I12.9 Hypertensive chronic kidney disease with stage 1 through stage 4 chronic kidney disease, or unspecified chronic kidney disease; N18.30 Chronic kidney disease, stage 3 unspecified; I25.82 Chronic total occlusion of coronary artery; I65.29 Occlusion and stenosis of unspecified carotid artery; N40.0 Benign prostatic hyperplasia without lower urinary tract symptoms; I25.10 Atherosclerotic heart disease of native coronary artery without angina pectoris; E78.5 Hyperlipidemia, unspecified; E78.00 Pure hypercholesterolemia, unspecified; E86.0 Dehydration; J98.11 Atelectasis; G89.29 Other chronic pain; I25.2 Old myocardial infarction; Z79.891 Long term (current) use of opiate analgesic; Z88.0 Allergy status to penicillin; Z79.899 Other long term (current) drug therapy; Z95.5 Presence of coronary angioplasty implant and graft; Z95.1 Presence of aortocoronary bypass graft; Z85.810 Personal history of malignant neoplasm of tongue; Z86.73 Personal history of transient ischemic attack (TIA), and cerebral infarction without residual deficits; Z86.718 Personal history of other venous thrombosis and embolism
CPT/HCPCS: 36415; 71045; 78452; 80053; 83036; 83735; 83880; 84100; 84484; 85025; 93005; 93017; 93306; 96372; 96374; 96375; 96376; 99285; A9502; G0378; J1644; J2270; J2405; J2785

== ENCOUNTER 2021-06-20 19:01 | Emergency (ER) | payer MEDICAID, MEDICARE ==
[~2021-06-20] VITALS: Ht 175.3 cm; Wt 98.6 kg
[2021-06-20] MEDS ORDERED: MAALOX/HYOSCYAMINE/LIDOCAINE 45 ML BTL ONE (19:36)
[2021-06-20 19:38] LABS: BASOPHILS % (AUTO) 2 % (0-1); EOSINOPHILS % (AUTO) 8 % (1-7); LYMPHOCYTES % (AUTO) 25 % (22-44); MEAN CORPUSCULAR HEMOGLOBIN 29.7 pg (27.5-34.5); MEAN CORPUSCULAR HGB CONC 33.5 g/dL (33.2-36.2); MEAN PLATELET VOLUME 7.7 fL (7.4-10.4); MONOCYTES % (AUTO) 8 % (2-9); NEUTROPHILS % (AUTO) 57 % (42-75); PLATELET COUNT 267 x10^3/uL (130-400); RED CELL DISTRIBUTION WIDTH 14.3 % (9.4-14.8)
[2021-06-20 19:47] LABS: ALANINE AMINOTRANSFERASE 52 U/L (12-78); ALBUMIN 3.7 g/dL (3.4-5.0); ANION GAP 9 mmol/L (5-15); CALCIUM 9.8 mg/dL (8.5-10.1); CHLORIDE 108 mmol/L (98-107)
[2021-06-20 19:51] LABS: CREATININE 2.35 mg/dL (0.7-1.3)
[2021-06-20 19:52] LABS: ALKALINE PHOSPHATASE 88 U/L (45-117); BILIRUBIN,TOTAL 0.5 mg/dL (0.2-1.0); TOTAL PROTEIN 7.8 g/dL (6.4-8.2); TROPONIN I < 0.015 ng/mL (0.000-0.045)
[2021-06-20] MEDS ORDERED: MAALOX/HYOSCYAMINE/LIDOCAINE 45 ML BTL PO ONE (20:00)
[2021-06-20 21:24] LABS: TROPONIN I < 0.015 ng/mL (0.000-0.045)
[2021-06-20] MEDS ORDERED: OXYcodone/APAP 5/325MG TABLET ONE (21:40)
--- NOTE | 2021-06-20 21:40 | NUR ---
Patient given discharge instructions and they have confirmed that they understand the instructions. Patient ambulatory with steady gait. NAD, all questions answered appropriately, denies additional needs at this time. No personal belongings left in room after discharge.
[2021-06-20 21:44] VITALS: BP 129/84
[2021-06-20] MEDS ORDERED: OXYcodone/APAP 5/325MG TABLET PO ONE (22:00)
== END 2021-06-20 21:47 | disposition home or self-care (01) ==
LOC: ED 19:31
DX: R07.89 Other chest pain (principal); R11.0 Nausea; R94.31 Abnormal electrocardiogram [ECG] [EKG]; E78.5 Hyperlipidemia, unspecified; I25.2 Old myocardial infarction; I10 Essential (primary) hypertension; I25.10 Atherosclerotic heart disease of native coronary artery without angina pectoris; Z86.73 Personal history of transient ischemic attack (TIA), and cerebral infarction without residual deficits; Z98.61 Coronary angioplasty status; Z95.1 Presence of aortocoronary bypass graft; Z88.0 Allergy status to penicillin; Z88.8 Allergy status to other drugs, medicaments and biological substances
CPT/HCPCS: 36415; 71045; 80053; 84484; 85025; 93005; 99285

== ENCOUNTER 2021-06-26 05:54 | Emergency (ER) | payer MEDICARE ==
[~2021-06-26] VITALS: Ht 175.3 cm; Wt 96.8 kg
[2021-06-26] MEDS ORDERED: ACETAMINOPHEN 325 MG TABLET ONE (06:29)
[2021-06-26] MEDS ORDERED: ACETAMINOPHEN 325 MG TABLET PO ONE (06:30)
--- NOTE | 2021-06-26 06:37 | NUR ---
PT MEDICATED FOR FEVER AND SWABBED FOR COVID. SAMPLE WALKED TO LAB. PT BP IMPROVING.
[2021-06-26 06:56] LABS: BASOPHILS % (AUTO) 1 % (0-1); EOSINOPHILS % (AUTO) 3 % (1-7); LYMPHOCYTES % (AUTO) 9 % (22-44); MEAN CORPUSCULAR HEMOGLOBIN 29.3 pg (27.5-34.5); MEAN CORPUSCULAR HGB CONC 32.9 g/dL (33.2-36.2); MEAN PLATELET VOLUME 7.8 fL (7.4-10.4); MONOCYTES % (AUTO) 11 % (2-9); NEUTROPHILS % (AUTO) 76 % (42-75); PLATELET COUNT 271 x10^3/uL (130-400); RED CELL DISTRIBUTION WIDTH 14.3 % (9.4-14.8)
[2021-06-26 07:05] LABS: ALANINE AMINOTRANSFERASE 63 U/L (12-78); ALBUMIN 3.8 g/dL (3.4-5.0); ANION GAP 5 mmol/L (5-15); CALCIUM 10.1 mg/dL (8.5-10.1); CHLORIDE 107 mmol/L (98-107); CREATININE 2.52 mg/dL (0.7-1.3)
[2021-06-26 07:10] LABS: ALKALINE PHOSPHATASE 99 U/L (45-117); BILIRUBIN,TOTAL 0.9 mg/dL (0.2-1.0); TOTAL PROTEIN 7.9 g/dL (6.4-8.2); TROPONIN I < 0.015 ng/mL (0.000-0.045)
--- NOTE | 2021-06-26 07:18 | NUR ---
PT RESTING CALMLY IN BED, AWAITING LABS TO RESULT
[2021-06-26] MEDS ORDERED: CLINDAMYCIN 150 MG CAPSULE PO ONE (07:30)
[2021-06-26 09:00] VITALS: BP 153/98
== END 2021-06-26 10:02 | disposition home or self-care (01) ==
LOC: ED 09:55
DX: K02.9 Dental caries, unspecified (principal); L03.211 Cellulitis of face; N18.9 Chronic kidney disease, unspecified; Z88.8 Allergy status to other drugs, medicaments and biological substances; Z20.822 Contact with and (suspected) exposure to COVID-19; R94.31 Abnormal electrocardiogram [ECG] [EKG]
CPT/HCPCS: 36415; 71045; 80053; 84484; 85025; 93005; 99285; U0003; U0005